=== PATIENT | male | born 1940 | race Caucasian/White ===

== ENCOUNTER 2023-10-19 07:48 | Inpatient (IN) ==
--- NOTE | 2023-09-20 16:12 | PAT Medication Instructions ---
Medication Instructions Date of Service September 20, 2023 Home Medications acetaminophen 650 mg tablet,extended release 1,950 mg PO DAILY PRN furosemide 40 mg tablet 40 mg PO QAM metoprolol succinate 50 mg tablet,extended release 24 hr 25 mg PO QAM pantoprazole 40 mg tablet,delayed release 40 mg PO QAM rivaroxaban 20 mg tablet (Xarelto) 20 mg PO QAM Continue as directed acetaminophen 650 mg tablet,extended release 1,950 mg PO DAILY PRN(if needed) ASK your prescriber and surgeon rivaroxaban 20 mg tablet (Xarelto) 20 mg PO QAM DO NOT take the morning of surgery furosemide 40 mg tablet 40 mg PO QAM Take morning of surgery With a small sip of water, OTHERWISE NOTHING TO EAT OR DRINK AFTER MIDNIGHT: metoprolol succinate 50 mg tablet,extended release 24 hr 25 mg PO QAM pantoprazole 40 mg tablet,delayed release 40 mg PO QAM Other Notes If you have any questions please call us at [phone] or [phone] or [phone] or [phone]
--- NOTE | 2023-09-26 13:00 | Anesthesiology Consultation ---
Date of Service September 26, 2023 Assessment & Plan (1) Encounter for pre-operative examination: - Infectious disease screening: Per assessment on 09/26/23: No known infectious disease contacts or current infectious disease symptoms. No noted recent Covid positive test result. - Xarelto instructions: Per surgeon/prescriber - Pacemaker: Case reviewed with Dr. Wren. He feels that patient does not need pacer rep perioperatively for given surgery. - Received 09/25/23 nuclear stress test. Patient acceptable risk for surgery pending surgeon-ordered cardiology clearance ([facility]). Chart Review Chart Review: Patient seen in Pre Admission Testing Teaching & Discussion Pre-Anesthesia Teaching/Discussion Notes: Instructed NPO after midnight before surgery,except medications with 15 cc of water. Medication instructions provided according to the PAT guidelines. History Surgery Operation Date: 10/19/23 10:05 Proposed Procedures p L3-S1 Decompression and Fusion - Deandre Edmond DO Height/Weight Height: 6 ft 1 in Weight: 117.5 kg Allergies Allergy/AdvReac Type Severity Reaction Status Date / Time niacin Allergy Intermediate flushed Verified 09/18/23 16:26 skin, light headed Medications Home Medications Medication Instructions Recorded Confirmed Last Taken acetaminophen 650 mg 1,950 mg PO DAILY PRN Pain 09/18/23 09/18/23 Unknown tablet,extended release furosemide 40 mg tablet 40 mg PO QAM 09/18/23 09/18/23 Unknown metoprolol succinate 50 mg 25 mg PO QAM 09/18/23 09/18/23 Unknown tablet,extended release 24 hr pantoprazole 40 mg tablet,delayed 40 mg PO QAM 09/18/23 09/18/23 Unknown release rivaroxaban 20 mg tablet (Xarelto) 20 mg PO QAM 09/18/23 09/18/23 Unknown Past Medical History Medical History (Updated 09/26/23 @ 16:25 by Richelle Valdez) Atrial fibrillation Taking Xarelto/Metoprolol Follows with Dr. Mchugh Barrettjaylene esophagus CAD (coronary artery disease) Cardiac cath 2020: Mild nonocclusive coronary disease > medical management recommended Chronic back pain Obesity Osteoarthritis Pacemaker Schwartz, implanted [address] Mchugh Exercise / Class Metabolic Activity III < 4 Walking/Shop/Light housework (one FS: No CP, + SOB) Past Family History Family History Other No family history of adverse response to anesthesia Past Surgical History Surgical History (Updated 09/26/23 @ 16:25 by Richelle Valdez) History of cardiac cath 2020- no stents History of cholecystectomy History of colonoscopy History of esophagogastroduodenoscopy (EGD) History of tooth extraction all teeth removed Status post placement of cardiac pacemaker 2020 ([facility] [place]) Past Anesthesia History No Hx of Anesthesia Complications and No Family Hx of Anesthesia Complications History of PONV No Hx of PONV and No Hx of Motion Sickness Social History Smoking Status: Former smoker Do You Dip or Chew Tobacco: No Smoking End Date: Quit 40 years ago Hx Alcohol Use: No Hx Substance Use: No substance use type: does not use Review of Systems Patient denies chest pain, shortness of breath, dyspnea on exertion, reflux, cough, wheezing, palpitations. Physical Exam Vital Signs BP 115/74 P 60 TEMP 98.3 SP02 96%RA RESP 18 Physical Full cervical extension range of motion. Full TMJ range of motion. TMD > 3.5 finger breaths Mallampati Score 1 Dentition: full upper/lower dentures Lungs: clear throughout to auscultation Cardiac: regular rate, irregular rhythm, no murmurs noted Spine: normal Carotid arteries: negative bruit Extremities: no LE edema Lab Results Anesthesia Preop Results Results Anesthesia Widget: PT 15.4 Seconds (9.0-12.0) H 09/26/23 PTT 45 Seconds (21-31) H 09/26/23 INR 1.4 (0.9-1.1) H 09/26/23 Urine Color Yellow 09/26/23 Urine Appearance Clear (Clear) 09/26/23 Urine pH 5.0 (4.5-7.5) 09/26/23 Urine Specific [place] 1.029 (1.000-1.030) 09/26/23 Urine Protein Negative (Negative) 09/26/23 Urine Glucose (UA) Negative (Negative) 09/26/23 Urine Ketones Trace (Negative) H 09/26/23 Urine Blood Negative (Negative) 09/26/23 Urine Nitrite Negative (Negative) 09/26/23 Urine Bilirubin Negative (Negative) 09/26/23 Urine Urobilinogen Negative (Negative) 09/26/23 Urine Leukocyte Esterase Negative (Negative) 09/26/23 Blood Type O Positive 09/26/23 Antibody Screen NEGATIVE 09/26/23 Testing Laboratory Results *Elevated coags- patient taking Xarelto* 09/07/23 WBC 8.9 H/H 14.3/45.0 PLATELETS 245 SODIUM 139 POTASSIUM 3.7 CHLORIDE 108 CO2 29.0 BUN 13.0 CREATININE 1.30 GLUCOSE 137 HGBA1C 6.1% Electrocardiogram Date: 11/25/22 Atrial fibrillation with normal mean ventricular response at 70 bpm. PVCs or aberrantly conducted complexes. Slight IVCD. Intermittent V pacing. Chest X-Ray Date: 09/26/23 FINDINGS: No pneumothorax. No pleural effusions. There is mild elevation of the right hemidiaphragm. The heart is top normal in size. There is left-sided single lead pacemaker. No focal lung consolidations to suggest pneumonia. No evidence for pulmonary edema. Calcifications within the aortic knob. Degenerative changes within the thoracic spine. IMPRESSION: No acute process. Stress Test Type: nuclear LV size is normal. No transient ischemic dilation of the left ventricle during stress. No myocardial perfusion defects noted. LVEF 71%. Cardiac Catheterization Date: 10/11/20 Mild nonocclusive coronary disease. Normal LV systolic function. Recommendations: Guideline directed medical therapy for secondary prevention of coronary artery disease. Other Testing Pacer check Date: 09/13/23 Normal implantable pacemaker remote followup. No significant devicerelated abnormalities noted. RVP 50.0%. Battery longevity 6 years 10 months. Bradycardia mode VVIR.
[2023-10-19] MEDS: ACETAMINOPHEN 500 MG TAB PO SCH (08:30)
[2023-10-19] MEDS: GABAPENTIN 300 MG CAP PO SCH (08:30)
[2023-10-19] MEDS: CeleBREX 200 MG CAP PO SCH (08:30)
[2023-10-19] MEDS: LR 60ML/HR IV SCH (08:31)
[2023-10-19] MEDS: LR 15ML/HR IV SCH (08:46)
[2023-10-19] MEDS ORDERED: ONDANSETRON INJ 2 MG/ML 2 ML VIAL IV PRN ×2 (09:10→14:42)
[2023-10-19] MEDS ORDERED: ATROPINE SULFATE 0.1 MG/ML 10ML SYR IV PRN (09:10)
[2023-10-19] MEDS ORDERED: ePHEDrine sulfate 50 MG/ML AMP IV PRN (09:10)
[2023-10-19] MEDS ORDERED: fentaNYL citrate PF 100 MCG/2 ML VIAL ONE ×2 (09:17→10:44)
--- NOTE | 2023-10-19 09:29 | History & Physical Bridge Note ---
Date of Service October 19, 2023 History & Physical Bridge Note I have examined the patient, reviewed the History & Physical and in the interval since the performance of the History & Physical I have noted the following changes of clinical significance: no changes noted
--- NOTE | 2023-10-19 09:31 | History & Physical Report ---
Date of Service October 19, 2023 Assessment & Plan (1) Neurogenic claudication due to lumbar spinal stenosis: Plan: L3-S1 decompression and fusion History of Present Illness Chief Complaint: Back and leg pain Primary Care Provider: Kristofer Ramirez This is an 83-year-old male presents with chronic persistent back and leg pain after failing extensive course of nonoperative care is here for surgical invention. Allergies Allergy/AdvReac Type Severity Reaction Status Date / Time niacin Allergy Intermediate flushed Verified 10/19/23 08:26 skin, light headed Home Medications Medication Instructions Recorded Confirmed Type acetaminophen 650 mg 1,950 mg PO DAILY PRN Pain 09/18/23 10/19/23 History tablet,extended release furosemide 40 mg tablet 40 mg PO QAM 09/18/23 10/19/23 History metoprolol succinate 50 mg 25 mg PO QAM 09/18/23 10/19/23 History tablet,extended release 24 hr pantoprazole 40 mg tablet,delayed 40 mg PO QAM 09/18/23 10/19/23 History release rivaroxaban 20 mg tablet (Xarelto) 20 mg PO QAM 09/18/23 10/19/23 History Past Med/Surg History Medical History (Updated 10/19/23 @ 09:30 by Deandre Edmond DO) CAD (coronary artery disease) Cardiac cath 2020: Mild nonocclusive coronary disease > medical management recommended Obesity Osteoarthritis Chronic back pain Barretts esophagus Atrial fibrillation Taking Xarelto/Metoprolol Follows with Dr. Mchugh Pacemaker Schwartz, implanted [address] Mchugh Surgical History History of colonoscopy History of esophagogastroduodenoscopy (EGD) History of tooth extraction all teeth removed History of cholecystectomy History of cardiac cath 2020- no stents Status post placement of cardiac pacemaker 2020 ([facility]) Family History Other No family history of adverse response to anesthesia Social History (System 12/02/18 @ 12:27 by Bhumi Calderón) Smoking Status: Former smoker Tobacco Type: Cigarettes Smoking End Date: Quit 40 years ago; Second Hand Exposure: No; Do You Dip or Chew Tobacco: No; Tobacco Cessation Education Requested by Patient: No Hx Alcohol Use: No Hx Substance Use: No Preferred Language: Armenian Communication Ability: Effective Manager Maritime Required: No Beliefs That Will Affect Care: None Current Living Situation: Alone Other Information That Helps Us Care for You: No Feels Safe at Home: Yes Safety Concerns: Feels Safe At This Time Assistive Devices: Denture - Upper, Denture - Lower, Glasses and Walker Physical Exam Physical Exam: Patient is alert and oriented Heart regular in rhythm Lungs clear Results & Data Results & Data Vital Signs (Past 12 Hours) Vital Signs Pulse Resp BP Pulse Ox O2 Del Method 10/19/23 08:21 86 20 163/94 H 94 Room Air
[2023-10-19] MEDS ORDERED: PROPOFOL IV EMULSION 10 MG/ML 20 ML VIAL IV ONE (09:48)
[2023-10-19] MEDS ORDERED: ONDANSETRON INJ 2 MG/ML 2 ML VIAL ONE (09:48)
[2023-10-19] MEDS ORDERED: ROCURONIUM BROMIDE 10 MG/ML 5 ML VIAL IV ONE ×3 (09:48→10:45)
[2023-10-19] MEDS ORDERED: LIDOCAINE 2% 2 ML VIAL/AMP(20MG/ML) INFIL ONE (09:48)
[2023-10-19] MEDS ORDERED: DEXAMETHASONE SOD INJ 4 MG/ML VIAL ONE (09:48)
[2023-10-19] MEDS: ceFAZolin 2000MG 2,000 MG/15 ML SYR IV SCH ×2 (10:11→18:24)
[2023-10-19] MEDS: BUPIVACAINE/EPINEPHRINE 0.5% MPF 1:200,000 30 ML VIAL ONE (10:58)
[2023-10-19] MEDS ORDERED: SUGAMMADEX SODIUM 200 MG/2 ML VIAL IV ONE ×2 (12:12)
--- NOTE | 2023-10-19 12:38 | Operative Report ---
Post Operative Report Pre & Post Diagnosis Operation Date: 10/19/23 09:35 Pre-Op Diagnosis: Neurogenic Claudication due to Lumbar Spinal Stenosis Spondylolisthesis L4-L5 Post-Op Diagnosis: Same I identified the patient and participated in the time-out.: Yes Procedure Operation Date: 10/19/23 09:35 Actual Procedures #1 lumbar decompression bilateral medial facetectomies and foraminotomies L2-L3, L3-L4 and L4-5. #2 posterior spinal fusion L3-L5. #3 placed posterior instrumentation L3 L5. #4 interbody fusion L3-L4 L4-5 and #5 placement Spira 13 x 26 mm at L3-4 and 15 x 26 mm x 2 at L4-L5. #6 placement locally harvested morselized autograft in the posterior gutters. #7 placement infuse collagen sponge combined with Koros in the posterior lateral gutters and Morpheus interbody space. Surgeon Deandre Edmond, DO Group Segment Consultant Scot Zhang Estimated Blood Loss 400 Findings See Below The patient is 6 foot 1 weighing over 117 kg with a BMI in excess of 34. Patient's body was did contribute to significant technical difficulty with positioning exposure and the procedure itself adding least 50% increased operative time. Specimens None Indications This is a 83-year-old male who presents above-mentioned diagnosis after failing course of nonoperative care is here for surgical invention. Description of Procedure Patient was met with identified informed consent obtained. Patient was then taken to the operative suite underwent a patient placed in a prone position on the Cornell table atop the Bruce frame. All bony promises well-padded eyes inspected to ensure no external pressure placed upon them. This point the lumbar spine was prepped and draped in a sterile fashion. Sharp dissection with the assistance of bradycardia from down to and exposing the lamina transverse processes of L3 L4-5 bilaterally. Patient placed in the 5 1 level demonstrated to be stable and chose not to pursue fusion at this level. From caudal cephalad fashion complete laminectomy L4 L3 and partial laminectomy L2 was performed including bilateral medial facetectomies and foraminotomies addressing severe spinal stenosis. Pedicle screws were placed in L3-L4-L5 bilaterally with assistance of fluoroscopy in the process madhuri placed. By way of transforaminal approach on the left discectomy of L4-5 was performed endplates guided to subcortical bleeding bone and a 15 x 26 mm Spira cage filled with Morpheus bone graft tapped in position. Then proceeded to the right side of L4-L5 and again by way the transforaminal approach discectomy performed endplates guided to subcortical bleeding bone and a second 15 x 26 mm Spira cage filled with Morpheus bone graft tapped in position. Then proceeded to L3-L4 and by way of transfer and approach on the left complete discectomy performed endplates guided to subcortically bone and a 13 x 26 mm Spira cage filled with Morpheus bone graft tapped in position. The rods were then compressed locked in final position bilaterally. The transverse processes of L3 L4-5 burred to subcortical bleeding bone. Infuse collagen sponge combined with Koros and local autograft placed in the posterior lateral gutters. 15 round KRISTI inserted. The incision was then closed with 1 Vicryl the fascia 2-0 Vicryl subcutaneously and 4 Monocryl for final skin closure. Steri-Strips dressing placed. Patient waken taken to PACU in stable condition. Please note spinal cord monitoring was utilized at the procedure no changes noted. Lastly Scot Zhang was present at the entire surgery and on the patient positioning complex portion of the surgery and possible closure. I attest to the content of the Intraoperative Record and any orders documented therein. Any exceptions are noted below.
[2023-10-19] MEDS: ceFAZolin 330 MG/ML 1 GM VIAL ONE (12:40)
[2023-10-19] MEDS: fentaNYL citrate PF 100 MCG/2 ML VIAL IV PRN (13:30)
--- NOTE | 2023-10-19 13:49 | Anesthesiology Progress Note ---
Date of Service October 19, 2023 Anesthesia Post Procedure Vital Signs Vital Signs: Temp Pulse Pulse Resp BP Pulse Ox O2 Del Method 10/19/23 13:45 97.5 F L 69 12 122/78 97 Nasal Cannula 10/19/23 13:35 70 15 120/65 97 Nasal Cannula 10/19/23 13:25 71 13 127/56 L 93 Room Air 10/19/23 13:15 67 12 118/62 97 Oxymask 10/19/23 13:05 67 18 133/69 99 Oxymask 10/19/23 12:56 99.0 F 68 12 129/62 98 Oxymask 10/19/23 08:21 86 20 163/94 H 94 Room Air O2 Flow Rate 10/19/23 13:45 2 10/19/23 13:35 2 10/19/23 13:25 10/19/23 13:15 4 10/19/23 13:05 8 10/19/23 12:56 8 10/19/23 08:21 Pain Intensity Back: Pain Intensity: 4 Transfer of Care Handoff Completed per policy Notes Mental Status: alert / awake / arousable and participated in evaluation Patient Amnestic to Procedure: Yes Nausea / Vomiting: adequately controlled Pain: adequately controlled Airway Patency, RR, SpO2: stable & adequate BP & HR: stable & adequate Hydration State: stable & adequate Anesthetic Complications: no major complications apparent and Pt Satisfied with anesthetic care
--- NOTE | 2023-10-19 13:51 | Fluoroscopy Report ---
[place] lumbar spine 2-3V CLINICAL HISTORY: L3-S1 DECOMPRESSION AND FUSION COMPARISON STUDY: None. FLUOROSCOPY TIME: 24 seconds FLUOROSCOPY IMAGES: 2 Ka,r: 23.2 mGy FINDINGS: There is 2 level posterior decompression and fusion within the mid to lower lumbar spine. T he exact levels are difficult to identify on this spot image. The hardware appears intact. IMPRESSION: Fluoroscopic assistance as above. ACT 112: Negative or not required by law. Electronically signed by: Gregg Flores M.D. 10/19/2023 1:50 PM
[2023-10-19] MEDS: FLOSEAL HEMOSTATIC MATRIX 10ML TOP ONE (13:54)
[2023-10-19] MEDS ORDERED: DO NOT ADMINISTER PNEUMOCOCCAL VACCINE PRN (14:42)
[2023-10-19] MEDS ORDERED: HYDROmorphone INJ 1 MG/ML SYRINGE IV PRN (14:42)
[2023-10-19] MEDS ORDERED: oxyCODONE HCL IR 5 MG TAB (IMMEDIATE RELEASE) PO PRN (14:42)
[2023-10-19] MEDS ORDERED: hydrOXYzine HCl 25 MG TAB PO PRN (14:42)
[2023-10-19] MEDS ORDERED: LORazepam 0.5 MG TAB PO PRN (14:42)
[2023-10-19] MEDS ORDERED: MAGNESIUM HYDROXIDE SUSP 30 ML UDC PO PRN (14:42)
[2023-10-19] MEDS ORDERED: FAMOTIDINE 20 MG TAB PO PRN (14:42)
[2023-10-19] MEDS ORDERED: LORazepam 0.5 MG in SYRINGE 0.25 ML IV PRN (14:42)
[2023-10-19] MEDS ORDERED: PROMETHAZINE HCL 12.5 MG in SODIUM CHLORIDE 0.9% 50 ML IV PRN (14:42)
[2023-10-19] MEDS ORDERED: ONDANSETRON 4 MG OD TAB PO PRN (14:42)
[2023-10-19] MEDS ORDERED: diphenhydrAMINE Capsule 25 MG CAP PO PRN (14:42)
[2023-10-19] MEDS ORDERED: METOCLOPRAMIDE HCL INJ 5 MG/ML 2 ML VIAL IV PRN (14:42)
[2023-10-19] MEDS ORDERED: DO NOT ADMINISTER FLU VACCINE PRN (14:42)
[2023-10-19] MEDS ORDERED: NALOXONE HCL 0.4 MG/1 ML VIAL/CARP IV PRN (14:42)
[2023-10-19] MEDS ORDERED: ALUMINUM/MAGNESIUM SUSP 30 ML UDC PO PRN (14:42)
[2023-10-19] MEDS: LACTATED RINGER'S 1,000 ML IV SCH (15:06)
[2023-10-19] MEDS: HYDROmorphone INJ 0.5 MG/0.5 ML SYR IV PRN (15:09)
--- NOTE | 2023-10-19 17:13 | Hospitalist Consultation ---
Date of Consultation October 19, 2023 Assessment & Plan (1) Neurogenic claudication due to lumbar spinal stenosis: This is an 83 y/o male with lumbar spinal stenosis, hx of CAD, atrial fibrillation, tachy-dawood syndrome s/p PPM, Ellsworth's esophagus, ALEX, venous insufficiency, edema, and hypercholesterolemia who underwent L3-L5 decompression and fusion today by Dr. Edmond and for whom we have been consulted to assist with post-operative medical management. He currently has no specific complaints other than some post-operative back pain that is similar to usual. POD #0 L3-L5 decompression/fusion - Pain control, activity per primary team - Recommend resuming Xarelto as soon as okay with primary team - Advance diet as tolerate - Encourage incentive spirometry - Labs in the AM - monitor for post-op blood loss anemia (EBL = 400) (2) CAD (coronary artery disease): Chronic, stable Continue beta-ayse Will decrease pt's IVF to 100 ml/hr since tolerating po intake - history of edema, on furosemide, so monitor fluid status closely (3) Atrial fibrillation: Chronic, stable Continue beta-ayse, resume Xarelto per #1 (4) Barretts esophagus: Chronic, stable Continue outpatient PPI Plan Pt seen and reviewed with collaborating physician, Dr. Butts. Plan of care discussed and as outlined above. Thank you for this consultation. We will continue to follow this patient with you. [facility] via Lorena Gaxiola. Please don't hesitate to reach out with questions. Emma García PA-C Supervising Physician Co-Signing Physician Notes I have seen and examined the patient and have discussed the case with the provider above. I have reviewed the advanced practitioner's documentation, and I agree with, and take responsibility for that plan of care. Meds reviewed. Restart rivaroxaban as soon as ok by spine surgeon. Has been held for 72 hours preop. Doing well post operatively from a clinical and symptom perspective. Tolerating PO. Denies uncontrolled pain. We will continue to follow his post operative course. DO Benjamín History of Present Illness Reason for Consultation: Post-operative medical management Requesting Physician: Dr. Deandre Edmond Attending Physician: Deandre Edmond DO History of Present Illness This is an 83 y/o male with lumbar spinal stenosis, hx of CAD, atrial fibrillation, tachy-dawood syndrome s/p PPM, Ellsworth's esophagus, ALEX, venous insufficiency, edema, and hypercholesterolemia who underwent L3-L5 decompression and fusion today by Dr. Edmond and for whom we have been consulted to assist with post-operative medical management. He is seen post-operatively and reports feeling well overall. He has some lower back pain that is similar to before surgery but is currently controlled. He denies any numbness or tingling at present. He has a history of mild nonobstructive CAD. He reports chronic [place], mainly with going up an incline. He denies chest pain/pressure, palpitations, N/V, dysphagia, ROTHMAN, dizziness at present. Tolerating liquid diet. He is on chronic Xarelto due to atrial fibrillation and reports that he held this for three days prior to surgery. He does not recall being told when this can be resumed. Allergies Allergy/AdvReac Type Severity Reaction Status Date / Time niacin Allergy Intermediate flushed Verified 10/19/23 08:26 skin, light headed amoxicillin Allergy Unknown Verified 10/19/23 14:46 Home Medications Medication Instructions Recorded Confirmed Type acetaminophen 650 mg 1,950 mg PO DAILY PRN Pain 09/18/23 10/19/23 History tablet,extended release furosemide 40 mg tablet 40 mg PO QAM 09/18/23 10/19/23 History metoprolol succinate 50 mg 25 mg PO QAM 09/18/23 10/19/23 History tablet,extended release 24 hr pantoprazole 40 mg tablet,delayed 40 mg PO QAM 09/18/23 10/19/23 History release rivaroxaban 20 mg tablet (Xarelto) 20 mg PO QAM 09/18/23 10/19/23 History Patient History Medical History CAD (coronary artery disease) Cardiac cath 2020: Mild nonocclusive coronary disease > medical management recommended Obesity Osteoarthritis Chronic back pain Barretts esophagus Atrial fibrillation Taking Xarelto/Metoprolol Follows with Dr. Mchugh Pacemaker Schwartz, implanted [address] Mchugh Surgical History History of colonoscopy History of esophagogastroduodenoscopy (EGD) History of tooth extraction all teeth removed History of cholecystectomy History of cardiac cath 2020- no stents Status post placement of cardiac pacemaker 2020 ([facility]) Family History Other No family history of adverse response to anesthesia Social History Smoking Status: Former smoker Tobacco Type: Cigarettes Smoking End Date: Quit 40 years ago; Second Hand Exposure: No; Do You Dip or Chew Tobacco: No; Tobacco Cessation Education Requested by Patient: No Hx Alcohol Use: No Hx Substance Use: No Preferred Language: Ivorian Communication Ability: Effective 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 Beliefs That Will Affect Care: None Current Living Situation: Alone Other Information That Helps Us Care for You: No Feels Safe at Home: Yes Safety Concerns: Feels Safe At This Time Assistive Devices: Denture - Upper, Denture - Lower, Glasses and Walker Review of Systems Review of Systems: All systems reviewed & are unremarkable except as noted in HPI & below Constitutional: no fever and no chills Eyes: no diplopia Ear, Nose, Mouth, Throat: no sore throat and no dysphagia Respiratory: no cough, no dyspnea and no wheezing Cardiovascular: + dyspnea on exertion (chronic, stable); no chest pain, no palpitations and no syncope Gastrointestinal: no abdominal pain, no nausea and no vomiting Genitourinary: no hematuria Musculoskeletal: + back pain Integumentary: no yellowing of the skin Neurologic: no dizziness, no headache(s) and no confusion Physical Exam Physical Exam: General: awake, alert, NAD, sitting in bed and appears comfortable HEENT: no scleral icterus, moist oral mucosa Neck: trachea midline Heart: irregularly irregular Lungs: CTA bilaterally without W/R/R Abdomen: soft, NT, +BS Extremities: distal pulses intact and equal, no pedal edema Neurologic: moving all extremities; sensation to light touch intact bilateral feet; no focal deficits; oriented x 3; no dysarthria or confusion Results & Data Results & Data Vital Signs (Past 12 Hours) Vital Signs Temp Pulse Pulse Resp BP Pulse Ox O2 Del Method 10/19/23 16:50 74 18 130/60 96 Room Air 10/19/23 15:41 74 18 133/96 96 Nasal Cannula 10/19/23 14:42 36.3 C L 63 18 127/68 95 Nasal Cannula 10/19/23 14:30 70 12 136/74 97 Nasal Cannula 10/19/23 14:15 70 14 127/68 97 Nasal Cannula 10/19/23 14:00 62 12 137/71 97 Nasal Cannula 10/19/23 13:45 36.4 C L 69 12 122/78 97 Nasal Cannula 10/19/23 13:35 70 15 120/65 97 Nasal Cannula 10/19/23 13:25 71 13 127/56 L 93 Room Air 10/19/23 13:15 67 12 118/62 97 Oxymask 10/19/23 13:05 67 18 133/69 99 Oxymask 10/19/23 12:56 37.2 C 68 12 129/62 98 Oxymask 10/19/23 08:21 86 20 163/94 H 94 Room Air O2 Flow Rate 10/19/23 16:50 10/19/23 15:41 1 10/19/23 14:42 1 10/19/23 14:30 2 10/19/23 14:15 2 10/19/23 14:00 2 10/19/23 13:45 2 10/19/23 13:35 2 10/19/23 13:25 10/19/23 13:15 4 10/19/23 13:05 8 10/19/23 12:56 8 10/19/23 08:21 Laboratory Results 10/19/23 08:09 Blood Type O Positive Antibody Screen NEGATIVE Crossmatch See Detail Medications Administered Acetaminophen (Acetaminophen 500 Mg Tab) 1,000 mg PO PREOP CARO Stop: 10/19/23 18:00 Last Admin: 10/19/23 08:30 Dose: 1,000 mg Documented By: TDM Celecoxib (Celebrex 200 Mg Cap) 200 mg PO PREOP CARO Stop: 10/19/23 18:00 Last Admin: 10/19/23 08:30 Dose: 200 mg Documented By: TDM Fentanyl Citrate (Fentanyl Citrate Pf 100 Mcg/2 Ml Vial) 50 mcg IV Q5M PRN PRN Reason: PACU Use Only-Pain Stop: 10/19/23 17:10 Last Admin: 10/19/23 13:30 Dose: 50 mcg Documented By: DP Gabapentin (Gabapentin 300 Mg Cap) 300 mg PO PREOP CARO Stop: 10/19/23 18:00 Last Admin: 10/19/23 08:30 Dose: 300 mg Documented By: GILMER Hydromorphone HCl (Hydromorphone Inj 0.5 Mg/0.5 Ml Syr) 0.5 mg IV Q3H PRN PRN Reason: MODERATE Pain (Scale 4,5,6) & Pre PT Stop: 11/02/23 14:41 Last Admin: 10/19/23 15:09 Dose: 0.5 mg Documented By: DANETTE Lactated Ringer's (Lr) 1,000 mls @ 60 mls/hr IV .I90E10H ON LICENSE OF [facility] Stop: 10/19/23 22:39 Last Admin: 10/19/23 08:31 Dose: Not Given Documented By: GILMER Cefazolin Sodium (Ancef 2000mg) 2,000 mg in 15 mls @ 3.75 mls/min IV PREOP CARO; Protocol Stop: 10/19/23 18:00 Last Admin: 10/19/23 10:11 Dose: 3.75 mls/min Documented By: [id number] Lactated Ringer's (Lr) 1,000 mls @ 15 mls/hr IV .Q24H ON LICENSE OF [facility] Stop: 10/20/23 05:59 Last Infusion: 10/19/23 10:09 Dose: Infused Documented By: Admin: 10/19/23 08:46 Dose: 15 mls/hr Documented By: GILMER Lactated Ringer's (Lr) 1,000 mls @ 150 mls/hr IV .Q6H40M ON LICENSE OF [facility] Stop: 11/18/23 14:41 Last Admin: 10/19/23 15:06 Dose: 150 mls/hr Documented By: DANETTE Discontinued Medications Bupivacaine HCl/Epinephrine Bitart (Bupivacaine/Epinephrine 0.5% Mpf 1:200,000 30 Ml Vial) Confirm Administered Dose 30 ml .ROUTE .STK-MED ONE Stop: 10/19/23 09:54 Last Admin: 10/19/23 10:58 Dose: 25 ml Documented By: GMKelby Cefazolin Sodium (Cefazolin 330 Mg/Ml 1 Gm Vial) Confirm Administered Dose 990 mg .ROUTE .STK-MED ONE Stop: 10/19/23 09:54 Last Admin: 10/19/23 12:40 Dose: 990 mg Documented By: JORGITO Miscellaneous ( Floseal Hemostatic Matrix 10ml) 10 ml TOP ONCE ONE Stop: 10/19/23 12:09 Last Admin: 10/19/23 14:39 Dose: 20 ml Documented By: GMB (2) CAD (coronary artery disease) Associated angina: unspecified whether angina present Coronary Disease-Associ ated Artery/Lesion type: [place] artery [place] vs. transplanted heart: red [place] heart Qualified Code(s): I25.10 - Atherosclerotic heart disease of [place] coronary artery without angina pectoris (3) Atrial fibrillation Atrial fibrillation type: longstanding persistent Qualified Code(s): I48.11 - Longstanding persistent atrial fibrillation (4) Barretts esophagus Ellsworth's esophagus type: without dysplasia Qualified Code(s): K22.70 - Ellsworth's esophagus without dysplasia
[2023-10-19] MEDS: DOCUSATE SODIUM/SENNA 50/8.6MG TAB PO SCH (20:28)
[2023-10-19] MEDS: ACETAMINOPHEN 1,000 MG/100 ML VIAL IV PRN (20:34)
[2023-10-20] MEDS: POLYETHYLENE (MIRALAX) 17 GM PACK PO SCH (06:21)
[2023-10-20 06:29] LABS: Basophils # (auto) 0.01 K/uL (0.00-0.20); Basophils % (auto) 0.1 %; Hematocrit (blood only) 33.7 % (42.0-52.0); Hemoglobin 11.8 g/dl (14.0-18.0); Immature Granulocytes # (auto) 0.07 K/uL (0.01-0.20); Immature Granulocytes % (auto) 0.5 %; Lymphocytes # (auto) 1.55 K/uL (1.20-3.40); Lymphocytes % (auto) 11.7 %; Mean Corpuscular Hemoglobin 32.2 pg (25.0-34.0); Mean Corpuscular Volume 92.1 fL (80.0-100.0); Mean Platelet Volume 10.8 fL (9.4-12.4); Monocytes # (auto) 1.19 K/uL (0.11-0.59); Neutrophils % (auto) 78.7 %; Platelet Count 199 K/uL (130-400); RDW Coefficient of Variation 13.4 % (11.5-14.5); RDW Standard Deviation 45.8 fL (36.4-46.3); Red Blood Count 3.66 M/uL (4.70-6.10); White Blood Count 13.22 K/ul (4.8-10.8)
[2023-10-20 06:52] LABS: Est GFR (African American) 81.4 ml/min; Est GFR (Non-African American) 70.3 ml/min; Potassium 4.1 mmol/L (3.5-5.1)
[2023-10-20 06:53] LABS: Calcium 8.9 mg/dl (8.6-10.3); Creatinine Clr Calc Pharmacy 77.7 ml/min
--- NOTE | 2023-10-20 07:48 | Orthopedic Progress Note ---
Date of Service October 20, 2023 Assessment & Plan (1) Neurogenic claudication due to lumbar spinal stenosis: Plan: Patient is doing well postoperatively #1. Continue with GI DVT prophylaxis and pain control measures. Will have him seen by physical therapy for ambulation and gait training and hopefully discontinue the [place] today. We are likely going to keep him throughout the weekend and discharge him to home on Sunday. Admission and Anticipated Discharge Date Admission Date: October 19, 2023 Subjective Patient was seen bedside in room 387. He states he is doing well at this point. If he is in 1 position for too long he starts to get some discomfort in the back but he would not call it jerad pain. His legs seem to be doing better. His pain is well-controlled. He denies any other numbness, tingling, paresthesias. Physical Exam Physical Exam: On exam he is alert and oriented. His visual ann are grossly intact. His abdomen soft and nontender his calves are supple and nontender. His motor exam reveals no focal atrophy strength and sensation grossly intact. His KRISTI drain is holding suction and his dressing is clean dry and intact. Results & Data Vital Signs (Past 12 Hours) Vital Signs Temp Pulse Resp BP BP Pulse Ox O2 Del Method 10/20/23 07:35 36.7 C 76 16 109/62 94 Room Air 10/20/23 02:59 36.7 C 78 16 111/64 93 Room Air 10/19/23 23:09 36.7 C 66 16 128/64 94 Room Air 10/19/23 20:16 36.8 C 70 16 112/70 95 Room Air
[2023-10-20] MEDS: METOPROLOL SUCC 25MG EXT REL TAB PO SCH (08:02)
[2023-10-20] MEDS: dexAMETHasone 6 MG in SYRINGE 0 ML IV SCH (08:02)
[2023-10-20] MEDS: PANTOprazole 40 MG TAB PO SCH (08:03)
[2023-10-20] MEDS: FUROSEMIDE 40 MG TAB PO SCH (08:03)
--- NOTE | 2023-10-20 14:26 | Hospitalist Progress Note ---
Date of Service October 20, 2023 Assessment & Plan (1) Neurogenic claudication due to lumbar spinal stenosis: Plan: This is an 83 y/o male with lumbar spinal stenosis, hx of CAD, atrial fibrillation, tachy-dawood syndrome s/p PPM, Ellsworth's esophagus, ALEX, venous i nsufficiency, edema, and hypercholesterolemia who underwent L3-L5 decompression and fusion today by Dr. Edmond and for whom we have been consulted to assist with post-operative medical management. He currently has no specific complaints other than some post-operative back pain that is similar to usual. POD #1 L3-L5 decompression/fusion - Pain control, activity per primary team - Recommend resuming Xarelto as soon as okay with primary team - Advance diet as tolerate - Encourage incentive spirometry - Labs in the AM - monitor for post-op blood loss anemia (EBL = 400) (2) CAD (coronary artery disease): Plan: Chronic, stable Continue beta-ayse (3) Atrial fibrillation: Plan: Chronic, stable Continue beta-ayse, resume Xarelto per #1 (4) Barretts esophagus: Plan: Chronic, stable Continue outpatient PPI Admission and Anticipated Discharge Date Admission Date: October 19, 2023 Subjective Patient was seen and examined at bedside. He was sitting up in chair, on room air, NAD, resting comfortably. He reports operative site pain under control. Reports eating okay and moving gas, has not moved bowels yet. Physical Exam Physical Exam: General: awake, alert, NAD, sitting in bed and appears comfortable HEENT: no scleral icterus, moist oral mucosa Neck: trachea midline Heart: irregularly irregular Lungs: CTA bilaterally without W/R/R Abdomen: soft, NT, +BS Extremities: distal pulses intact and equal, no pedal edema Neurologic: moving all extremities; sensation to light touch intact bilateral feet; no focal deficits; oriented x 3; no dysarthria or confusion Low back with clean dressing without soakage. Results & Data Results & Data Vital Signs (Past 12 Hours) Vital Signs Temp Pulse Resp BP BP Pulse Ox O2 Del Method 10/20/23 11:27 37 C 75 18 119/66 95 Room Air 10/20/23 07:35 36.7 C 76 16 109/62 94 Room Air 10/20/23 02:59 36.7 C 78 16 111/64 93 Room Air (2) CAD (coronary artery disease) Coronary Disease-Associated Artery/Lesion type: [place] artery [place] vs. transplanted heart: [place] heart Associated angina: unspecified whether angina present Qualified Code(s): I25.10 - Atherosclerotic heart disease of [place] coronary artery without angina pectoris (3) Atrial fibrillation Atrial fibrillation type: longstanding persistent Qualified Code(s): I48.11 - Longstanding persistent atrial fibrillation (4) Barretts esophagus Ellsworth's esophagus type: without dysplasia Qualified Code(s): K22.70 - Ellsworth's esophagus without dysplasia
[2023-10-21 06:23] LABS: Hematocrit (blood only) 34.5 % (42.0-52.0); Hemoglobin 11.8 g/dl (14.0-18.0); Mean Corpuscular Hemoglobin 31.6 pg (25.0-34.0); Mean Corpuscular Hgb Conc 34.2 g/dL (32.0-36.0); Mean Corpuscular Volume 92.2 fL (80.0-100.0); Mean Platelet Volume 10.8 fL (9.4-12.4); Platelet Count 183 K/uL (130-400); RDW Coefficient of Variation 13.9 % (11.5-14.5); RDW Standard Deviation 47.2 fL (36.4-46.3); Red Blood Count 3.74 M/uL (4.70-6.10); White Blood Count 12.73 K/ul (4.8-10.8)
--- NOTE | 2023-10-21 07:48 | Orthopedic Progress Note ---
Date of Service October 21, 2023 Assessment & Plan (1) Neurogenic claudication due to lumbar spinal stenosis: Plan: Patient is doing well postop day #2 status post L3-5 decompression fusion. Organ to continue with GI DVT prophylaxis as well as pain control measures. Will increase his bowel regimen. He will continue to walk with physical therapy. Hopefully he will be safe for home discharge tomorrow. Admission and Anticipated Discharge Date Admission Date: October 19, 2023 Subjective Patient is seen bedside in room 387. He is doing well this morning. Has not yet had a bowel movement however. He has been up and walking with therapy. Their recommendations were home discharge with home care. The pain in his legs is significantly improved. He denies any other numbness, tingling, or paresthesias. The pain is well-controlled. Physical Exam Physical Exam: On exam he is alert and oriented. His abdomen soft nontender his calves are supple and nontender. His KRISTI drain has been removed and dressing is clean dry and intact. Strength and sensation are grossly intact. His gait was not observed. Cardiovascular exam reveals no gross abnormalities. Results & Data Vital Signs (Past 12 Hours) Vital Signs Temp Pulse Resp BP BP Pulse Ox O2 Del Method 10/21/23 07:46 36.6 C 62 16 125/75 96 Room Air 10/20/23 20:09 37 C 77 16 114/60 94 Room Air
--- NOTE | 2023-10-21 13:21 | Hospitalist Progress Note ---
Date of Service October 21, 2023 Assessment & Plan (1) Neurogenic claudication due to lumbar spinal stenosis: Plan: This is an 83 y/o male with lumbar spinal stenosis, hx of CAD, atrial fibrillation, tachy-dawood syndrome s/p PPM, Ellsworth's esophagus, ALEX, venous i nsufficiency, edema, and hypercholesterolemia who underwent L3-L5 decompression and fusion today by Dr. Edmond and for whom we have been consulted to assist with post-operative medical management. He currently has no specific complaints other than some post-operative back pain that is similar to usual. POD #2 L3-L5 decompression/fusion - Pain control, activity per primary team - Recommend resuming Xarelto as soon as okay with primary team - Encourage incentive spirometry (2) CAD (coronary artery disease): Plan: Chronic, stable Continue beta-ayse (3) Atrial fibrillation: Plan: Chronic, stable Continue beta-ayse, resume Xarelto per #1 (4) Barretts esophagus: Plan: Chronic, stable Continue outpatient PPI Admission and Anticipated Discharge Date Admission Date: October 19, 2023 Subjective Patient was seen and examined at bedside. He was sitting up in chair, on room air, NAD, resting comfortably. He reports operative site pain under control. Reports eating okay and moving gas, has not moved bowels yet. Reports improvement in radicular symptoms. Physical Exam Physical Exam: General: awake, alert, NAD, sitting in bed and appears comfortable HEENT: no scleral icterus, moist oral mucosa Neck: trachea midline Heart: irregularly irregular Lungs: CTA bilaterally without W/R/R Abdomen: soft, NT, +BS Extremities: distal pulses intact and equal, no pedal edema Neurologic: moving all extremities; sensation to light touch intact bilateral feet; no focal deficits; oriented x 3; no dysarthria or confusion Low back with clean dressing without soakage. Results & Data Results & Data Vital Signs (Past 12 Hours) Vital Signs Temp Pulse Resp BP Pulse Ox O2 Del Method 10/21/23 07:46 36.6 C 62 16 125/75 96 Room Air (2) CAD (coronary artery disease) Coronary Disease-Associated Artery/Lesion type: [place] artery [place] vs. transplanted heart: [place] heart Associated angina: unspecified whether angina present Qualified Code(s): I25.10 - Atherosclerotic heart disease of [place] coronary artery without angina pectoris (3) Atrial fibrillation Atrial fibrillation type: longstanding persistent Qualified Code(s): I48.11 - Longstanding persistent atrial fibrillation (4) Barretts esophagus Ellsworth's esophagus type: without dysplasia Qualified Code(s): K22.70 - Ellsworth's esophagus without dysplasia
[2023-10-21] MEDS: bisacodyL 10 MG SUPP PR PRN (13:59)
[2023-10-21] MEDS: traMADol HCL 50 MG TABLET PO PRN (15:41)
[2023-10-21] MEDS: SOD PHOSPHATE/SOD BIPHOSPHATE ENEMA 132 ML BTL PR PRN (18:42)
[2023-10-21] MEDS: ACETAMINOPHEN 500 MG TAB PO PRN (20:21)
--- NOTE | 2023-10-22 10:23 | Discharge Summary ---
Date of Service October 22, 2023 Admission HPI Per Admitting Provider This is an 83-year-old male presents with chronic persistent back and leg pain after failing extensive course of nonoperative care is here for surgical invention. Principal Diagnosis Lumbar spinal stenosis with neurogenic claudication Discharge Data Allergies Allergy/AdvReac Type Severity Reaction Status Date / Time niacin Allergy Intermediate flushed Verified 10/19/23 08:26 skin, light headed amoxicillin Allergy Unknown Verified 10/19/23 14:46 Consultations 10/19/23 14:42 Consult Hospitalist Routine Procedures Performed Operation Date: 10/19/23 09:35 Actual Procedures p L3-L5 Decompression and Fusion, Spinal Cord Monitoring(Not Applicable) - Deandre Edmond DO Ordered Studies 10/19/23 09:35 [place] lumbar spine 2-3V Routine Hospital Course (1) Neurogenic claudication due to lumbar spinal stenosis: Plan Patient went multilevel lumbar decompression fusion tolerated as well as negative orthopedic for postoperative. Postoperatively progressed daily. KRISTI drain decreased appropriately. Excellent strength testing. Pain well- controlled. Subsidy discharged home. Discharge orders instructions from the chart for further review. Total Time Total Time Spent Total Time Spent (In Minutes): 20 minutes Discharge Plan Discharge Items Patient Disposition: Home - Self-Care Reason For Visit: Spinal Stenosis of Lumbar Region with Radiculopath Discharge Diagnosis: Lumbar spinal stenosis with neurogenic claudication Activity: As commented below Non-emergency contact: Primary Care Provider Call non-emergency contact if: you have any medication questions Follow-up/Referrals: Kristofer Ramirez [Primary Care Provider] - Diet: Regular Addtl Attending Provider Instructions: ACTIVITY RECOMMENDATIONS: SELF CARE INSTRUCTIONS AFTER THORACIC/LUMBAR FUSIONS 1. You may walk to your tolerance. It is good exercise for your legs and back. Expect some back and intermittent leg aches and pains. 2. You may perform "counter-top" level activities (make a sandwich, bebeto with a project, etc.). 3. No bending or lifting of more than 10 pounds or back twisting of any nature (roll like a log when turning in bed). 4. You may ride in a car for 20-30 minutes at a time. No driving until after your first visit with your doctor. 5. Frequent changes of position and restricting sitting to 30 minutes at a time will help limit the amount of back spasms and stiffness you may experience. 6. You may discontinue the use of ambulatory aids (cane, crutches, etc.) once your strength and confidence allow. 7. You may labor standards director the shower and let water strike your incision when you arrive home at least once daily. Do not take a tub bath, sit in a hot tub or go into a swimming pool until after your first recheck in the office. SPECIAL CARE INSTRUCTIONS: VERY IMPORTANT TO READ AND REVIEW A. Your surgical incision has been closed with a cosmetic suture under the skin that will dissolve in about 6 weeks. In 14 days, you can use a pair of clean scissors and cut the suture that is left outside of the skin at the ends of your incision. 1. The small skin tapes can be removed 7 days after surgery if they have not fallen off by that point. 2. You may keep the wound open to air as much as possible to promote healing after post-op day number 5 unless told otherwise by your doctor. 3. If you think the wound looks like it is becoming infected (redness or wo rsening drainage) and/or you are experiencing fever, chill or worsening back pain and muscle spasms, contact the office so that we may evaluate you as soon as possible. B. Complications are uncommon, but please contact us if you have any signs or symptoms of: 1. wound infection (fever higher than 102.5 degrees F, redness, separation of wound, drainage, or increasing pain from the incision) 2. blood clots in legs (pain, swelling, redness and warmth in legs) 3. urinary tract infection (fever higher than 102.5 degrees F, burning upon urination or increased frequency of urination) 4. nerve problems (inability to walk on your toes or heels, numbness, loss of bowel or bladder control) 5. any other symptoms that concern you C. Please call the office at if you have any concerns or questions about your operation or recovery. D. No smoking! Smoking drastically decreases the chance of a solid fusion. E. Do not take any anti-inflammatory medications (Indocin, Advil, Motrin, Aspirin, Naprosyn, etc.) as these may inhibit the chance of a solid fusion. Tylenol is okay to take for pain. MANAGING PAIN AFTER SPINAL SURGERY 1. Narcotic medication is intended for short-term use and will be provided for surgical pain. Surgical pain usually lasts for a period of 4-6 weeks. Narcotic medication includes Percocet, Vicodin, Darvocet, Tylenol #3 or Lortab. 2. Longer-term pain is more appropriately treated with non-narcotic medication such as Tylenol ES. 3. Muscle spasm is not appropriately treated with narcotics. Muscle relaxers such as Soma, Flexeril or Skelaxin can be used along with Tylenol ES. 4. Remember that we all live with some "aches and pains". This is not unusual or uncommon after an injury or as we get older. a. Back pain is expected and may include muscle spasms for 4 to 6 weeks after surgery. The pain should gradually improve. If the pain worsens for no apparent reason, please contact the office. b. Intermittent leg pain may also be experienced and should not be concerned about unless it worsens for no apparent reason. If so, please contact the office. 5. We will provide appropriate medication within the normal guidelines of their prescribed use. We will also be very cautious and aware of potential abuse and extended duration of patients' medication needs. a. Pain medications are for your comfort and to assist with sleep and rest so that the tissue can heal. They are not provided in order to return to normal activity and should not be used through the day. To do so or worsening pain at night can result from ongoing tissue damage and development of tolerance to the prescribed medicine. 6. Please allow 2-3 days to process refills. Prescriptions will not be mailed but must be picked up at the office. FOLLOW UP VISIT: Keep your scheduled follow-up appointment. Any questions, please call the office at . Pending Studies at Discharge: No Stand-Alone Forms: [facility], Smoking Cessation Medications and DC Order Prescriptions: New tramadol 50 mg tablet 50 mg PO Q6H PRN (Reason: pain, moderate) Qty: 30 0RF oxycodone 5 mg tablet 5 mg PO Q6H PRN (Reason: pain) Qty: 30 0RF Continued furosemide 40 mg Tablet 40 mg PO QAM metoprolol succinate 50 mg Tablet Extended Release 24 Hr 25 mg PO QAM pantoprazole 40 mg Tablet,Delayed Release (Dr/Ec) 40 mg PO QAM Xarelto 20 mg Tablet 20 mg PO QAM Rx Instructions: must administer with evening meal acetaminophen 650 mg Tablet Extended Release 1,950 mg PO DAILY PRN (Reason: Pain) Discharge Orders: Discharge Order (Routine); Ordered 10/22/23 Ordered By: Deandre Edmond Admission Data Admit Date/Time: 10/19/23 12:43 Attending Provider: Deandre Edmond Admit Provider: Deandre Edmond Primary Care Provider: Kristofer Ramirez Other Providers: Rocio Butts
--- NOTE | 2023-10-22 12:09 | Hospitalist Progress Note ---
Date of Service October 22, 2023 Assessment & Plan (1) Neurogenic claudication due to lumbar spinal stenosis: Plan: This is an 83 y/o male with lumbar spinal stenosis, hx of CAD, atrial fibrillation, tachy-dawood syndrome s/p PPM, Ellsworth's esophagus, ALEX, venous i nsufficiency, edema, and hypercholesterolemia who underwent L3-L5 decompression and fusion today by Dr. Edmond and for whom we have been consulted to assist with post-operative medical management. He currently has no specific complaints other than some post-operative back pain that is similar to usual. POD #3 L3-L5 decompression/fusion - Pain control, activity per primary team - Recommend resuming Xarelto as soon as okay with primary team - Encourage incentive spirometry (2) CAD (coronary artery disease): Plan: Chronic, stable Continue beta-ayse (3) Atrial fibrillation: Plan: Chronic, stable Continue beta-ayse, resume Xarelto per #1 (4) Barretts esophagus: Plan: Chronic, stable Continue outpatient PPI Admission and Anticipated Discharge Date Admission Date: October 19, 2023 Subjective Patient was seen and examined at bedside. He was sitting up in chair, on room air, NAD, resting comfortably. He reports operative site pain under control. Reports eating okay and moving bowels okay. Reports continued improvement in radicular symptoms. Physical Exam Physical Exam: General: awake, alert, NAD, sitting in bed and appears comfortable HEENT: no scleral icterus, moist oral mucosa Neck: trachea midline Heart: irregularly irregular Lungs: CTA bilaterally without W/R/R Abdomen: soft, NT, +BS Extremities: distal pulses intact and equal, no pedal edema Neurologic: moving all extremities; sensation to light touch intact bilateral feet; no focal deficits; oriented x 3; no dysarthria or confusion Low back with clean dressing without soakage. Results & Data Results & Data Vital Signs (Past 12 Hours) Vital Signs Temp Pulse Resp BP Pulse Ox O2 Del Method 10/22/23 07:41 36.9 C 64 18 146/82 H 95 Room Air 10/22/23 07:20 Room Air (2) CAD (coronary artery disease) Coronary Disease-Associated Artery/Lesion type: [place] artery [place] vs. transplanted heart: [place] heart Associated angina: unspecified whether angina present Qualified Code(s): I25.10 - Atherosclerotic heart disease of [place] coronary artery without angina pectoris (3) Atrial fibrillation Atrial fibrillation type: longstanding persistent Qualified Code(s): I48.11 - Longstanding persistent atrial fibrillation (4) Barretts esophagus Ellsworth's esophagus type: without dysplasia Qualified Code(s): K22.70 - Ellsworth's esophagus without dysplasia
== END 2023-10-22 12:33 | disposition home or self-care (01) | DRG 454 ==
LOC: ASU 07:48 → 3N 12:43

== ENCOUNTER 2024-10-15 06:37 | Inpatient (IN) ==
--- NOTE | 2024-09-22 15:09 | PAT Medication Instructions ---
Medication Instructions Date of Service September 22, 2024 Home Medications acetaminophen 650 mg tablet,extended release 1,300 mg PO DAILY PRN Pain furosemide 40 mg tablet 40 mg PO QAM metoprolol succinate 50 mg tablet,extended release 24 hr 25 mg PO QAM pantoprazole 40 mg tablet,delayed release 40 mg PO QAM rivaroxaban 20 mg tablet (Xarelto) 20 mg PO QAM MEDICATION INSTRUCTIONS: ASK your prescriber and surgeon rivaroxaban 20 mg tablet (Xarelto) 20 mg PO QAM DO NOT take the morning of surgery furosemide 40 mg tablet 40 mg PO QAM Take morning of surgery With a small sip of water, OTHERWISE NOTHING TO EAT OR DRINK AFTER MIDNIGHT: acetaminophen 650 mg tablet,extended release 1,300 mg PO DAILY PRN Pain metoprolol succinate 50 mg tablet,extended release 24 hr 25 mg PO QAM pantoprazole 40 mg tablet,delayed release 40 mg PO QAM Take evening before surgery acetaminophen 650 mg tablet,extended release 1,300 mg PO DAILY PRN Pain Other Notes If you have any questions please call us at [phone] or [phone] or [phone] or [phone]
--- NOTE | 2024-10-02 13:34 | Anesthesiology Consultation ---
Date of Service October 02, 2024 Assessment & Plan (1) Encounter for pre-operative examination: - will request most recent Schwartz pacemaker report, cardiology office note, Dr. Svetlana Gutierrez and medical clearance, Carmen Aponte. - Schwartz pacemaker. Chart Review Chart Review: Pending: Refer to Additional Notes / Consult section and Patient seen in Pre Admission Testing Teaching & Discussion Pre-Anesthesia Teaching/Discussion Notes: Instructed NPO after midnight before surgery, except medications with 15 cc of water. Medication instructions provided according to the PAT guidelines. History Surgery Operation Date: 10/15/24 07:45 Proposed Procedures p L2-L3 Decompression and Fusion, Connecting to Previous Hardware, Spinal Cord Monitoring - Deandre Edmond DO Height/Weight Height: 6 ft 1 in Weight: 102.7 kg Allergies Allergy/AdvReac Type Severity Reaction Status Date / Time INGRID Inhibitors Allergy Severe angioedema Verified 10/02/24 13:32 niacin Allergy Intermediate flushed Verified 09/22/24 14:17 skin, light headed amoxicillin Allergy Unknown Unknown Verified 09/22/24 14:17 gabapentin AdvReac Intermediate leg Verified 10/02/24 13:32 swelling Medications Home Medications Medication Instructions Recorded Confirmed Last Taken acetaminophen 650 mg 1,300 mg PO DAILY PRN Pain 09/18/23 09/22/24 10/19/23 05:30 tablet,extended release furosemide 40 mg tablet 40 mg PO QAM 09/18/23 09/22/24 10/18/23 07:00 metoprolol succinate 50 mg 25 mg PO QAM 09/18/23 09/22/24 10/19/23 05:30 tablet,extended release 24 hr pantoprazole 40 mg tablet,delayed 40 mg PO QAM 09/18/23 09/22/24 10/19/23 05:30 release rivaroxaban 20 mg tablet (Xarelto) 20 mg PO QAM 09/18/23 09/22/24 10/15/23 07:30 Past Medical History Medical History Atrial fibrillation Taking Xarelto/Metoprolol Follows with Dr. Lolita Blanton esophagus CAD (coronary artery disease) Cardiac cath 2020: Mild nonocclusive coronary disease > medical management recommended Chronic back pain COPD (chronic obstructive pulmonary disease) controlled, stable per pt-stopped inhaler use due to tachycardia GERD (gastroesophageal reflux disease) controlled, stable per pt History of diverticulitis (~1994) Hypertension controlled, stable per pt Obesity On anticoagulant therapy xarelto daily Osteoarthritis Pacemaker Schwartz, implanted [address] Mchugh Peripheral vascular disease Pulmonary hypertension Type 2 diabetes mellitus NIDDM Patient denies h/o stroke, seizures, heart attack, heart failure, blood clots/DVTs or blood transfusions. Exercise / Class Metabolic Activity II 4-5 Yardwork/Stairs/Walk up hill (chronic shortness of breath with one flight of stairs, denies chest discomfort-denies change or worsening) Past Family History Family History Other No family history of adverse response to anesthesia Past Surgical History Surgical History History of cardiac cath 2020- no stents History of cholecystectomy History of colonoscopy History of esophagogastroduodenoscopy (EGD) History of lumbar spinal fusion (09/2023) L3-L5 @ [facility] Dr. Edmond History of tooth extraction all teeth removed Status post placement of cardiac pacemaker 2020 ([facility]) Past Anesthesia History No Hx of Anesthesia Complications and No Family Hx of Anesthesia Complications History of PONV No Hx of PONV and No Hx of Motion Sickness Social History Smoking Status: Former smoker Do You Dip or Chew Tobacco: No Smoking End Date: 1971 Hx Alcohol Use: No Hx Substance Use: No substance use type: does not use Review of Systems Patient denies chest pain, shortness of breath, dyspnea on exertion, snoring, witnessed apneas, fever, chills, cough, wheezing, or palpitations. Physical Exam Vital Signs Vitals BP 130/80 P 60 TEMP 98.2 SP02 97% on RA RESP 18 Physical Patient resting comfortably in chair in no acute distress, alert and oriented, responding appropriately throughout visit Full cervical extension range of motion without pain TMD 3.5 finger breadths Mallampati Score 2 Dentition: intact, denies chipped or loose teeth, caps/crowns, implants or bridges Lungs: normal respiratory effort. Good air movement, clear throughout to auscultation, no adventitious breath sounds Cardiac: regular rate and rhythm, no murmurs noted Carotid arteries: negative bruit bilat Lab Results Anesthesia Preop Results Results Anesthesia Widget: WBC 8.63 K/ul (4.8-10.8) 10/02/24 Hgb 13.4 g/dl (14.0-18.0) L 10/02/24 Hct 40.6 % (42.0-52.0) L 10/02/24 Plt 214 K/uL (130-400) 10/02/24 PT 14.4 Seconds (9.0-12.0) H 10/02/24 PTT 40 Seconds (21-31) H 10/02/24 INR 1.4 (0.9-1.1) H 10/02/24 Urine Color Yellow 10/02/24 Urine Appearance Clear (Clear) 10/02/24 Urine pH 7.0 (4.5-7.5) 10/02/24 Urine Specific [place] 1.006 (1.000-1.030) 10/02/24 Urine Protein Negative (Negative) 10/02/24 Urine Glucose (UA) Negative (Negative) 10/02/24 Urine Ketones Negative (Negative) 10/02/24 Urine Blood Negative (Negative) 10/02/24 Urine Nitrite Negative (Negative) 10/02/24 Urine Bilirubin Negative (Negative) 10/02/24 Urine Urobilinogen Negative (Negative) 10/02/24 Urine Leukocyte Esterase Negative (Negative) 10/02/24 Blood Type O Positive 10/02/24 Antibody Screen NEGATIVE 10/02/24 Testing Laboratory Results 09/09/24 SODIUM: 138 POTASSIUM: 3.9 CHLORIDE: 104 CO2: 28 BUN: 17 CREATININE: 1.3 GLUCOSE: 112 A1c: 5.9% Electrocardiogram Date: 10/02/24 Ventricular-paced rhythm, rate 59 bpm Chest X-Ray Date: 10/02/24 No acute findings. Echocardiogram Date: 12/17/23 EF 55-60% Normal wall motion RVSP 35 mmHg Moderately dilated atria Mild mitral regurgitation Mild tricuspid regurgitation Mild pulmonic regurgitation Mildly dilated ascending aorta Stress Test Date: 09/25/23 MPHR 81% No transient ischemic dilation of the LV during stress No myocardial perfusion defects EF 71% Cardiac Catheterization Date: 10/11/20 Left main: mild proximal stenosis of 20-30% LAD: proximal segment of less than 20%, 30% stenosis just after the ostium of the second diagonal Cx: 30% proximal segment RCA: 30-40% stenosis eccentric stenosis Mild nonocclusive coronary disease
[2024-10-15] MEDS ORDERED: fentaNYL citrate PF 100 MCG/2 ML VIAL ONE ×2 (07:10→10:36)
[2024-10-15] MEDS ORDERED: PROPOFOL IV EMULSION 10 MG/ML 20 ML VIAL IV ONE (07:10)
[2024-10-15] MEDS ORDERED: MIDAZOLAM HCL 1 MG/ML 2ML VIAL ONE (07:10)
[2024-10-15] MEDS ORDERED: LIDOCAINE 2% 2 ML VIAL/AMP(20MG/ML) INFIL ONE (07:10)
[2024-10-15] MEDS ORDERED: ROCURONIUM BROMIDE 10 MG/ML 5 ML VIAL IV ONE (07:10)
[2024-10-15] MEDS ORDERED: GLYCOPYRROLATE 0.2 MG/ML VIAL ONE (07:10)
[2024-10-15] MEDS ORDERED: DEXAMETHASONE SOD INJ 4 MG/ML VIAL ONE (07:10)
[2024-10-15] MEDS ORDERED: ONDANSETRON INJ 2 MG/ML 2 ML VIAL ONE (07:10)
[2024-10-15] MEDS ORDERED: SUGAMMADEX SODIUM 200 MG/2 ML VIAL IV ONE (07:15)
[2024-10-15] MEDS: VANCOMYCIN HCL 1,500 MG in SODIUM CHLORIDE 0.9% 500 ML IV SCH (07:25)
--- OUTSIDE RECORDS SUMMARY | 2024-10-15 07:34 | External Medical Summary | Continuity of Care Document ---
Author Name Unknown Organization [facility] [address] [facility] Address [address] [place], [place] [id number] Care Team Providers Care Multimedia Coordinator Name Role Phone Carmen Aponte Primary Care Physician [phone] Encounter [facility] [id number] Date(s): 09/30/24 - 09/30/24 [facility] [address], [address] [place] [address] [phone] Encounter Diagnosis Body mass index [BMI] 29.0-29.9, adult(Discharge Diagnosis) - 09/30/24 Preop cardiovascular exam(Discharge Diagnosis) - 09/30/24 Atrial fibrillation, chronic(Discharge Diagnosis) - 09/30/24 Pacemaker(Discharge Diagnosis) - 09/30/24 Hypercholesterolemia(Discharge Diagnosis) - 09/30/24 CAD in [place] artery(Discharge Diagnosis) - 09/30/24 Discharge Disposition: Home or Self Care Attending Physician: DO Gutierrez Michelle L Encounter Type: Clinic Allergies, Adverse Reactions, Alerts Substance Criticality Severity Reaction Reaction Severity Status niacin redness/face Active PCN (penicillin) 1 rash? A ctive 120 years ago Assessment and Plan Extracted from: Title:Cardiology Office Visit Note Author:DO Gutierrez Michelle L Date:09/30/24 1.Preop cardiovascular exa m 2.Atrial fibrillation, chronic 3.Pacemaker [place] single lead RV pacemaker 2020 4.Hypercholesterolemia His most recent lipids done through your office are not optimally controlled but I think the Crestor was just restarted. We want a goal LDL cholesterol of less than 60 5.CAD in [place] artery Mild by cath 2020 From a cardiac standpoint he is considered to be an appropriate candidate for the upcoming back surgery. We can hold his Xarelto for 3 days prior to that surgery. It can be restarted as per Dr. Edmond's recommendations. From a cardiac standpoint I will get him set up with our pacemaker clinic here at [facility] in the spring. He will also be due for his annual echo at that time I will schedule that at that time as well. In the future if he plans to go ahead with knee surgery I will in all likelihood clear him for that as well. Thank you for allowing me to participate in the care of this very nice patient. I look forward to participating in their care with you. I will follow up after remaining tests are complete. Svetlana Gutierrez DO [facility] Literature Teachertaxicab driver [facility] [place] [facility] Medications furosemide 40 mg oral tablet Start: 09/30/24 3:05:00 PM EST, 1 tab, PO, Daily Start Date: 09/30/24 Status: Ordered Repeat number: 1 Metoprolol Succinate ER 50 mg oral tablet, extended release Start: 09/30/24 3:05:00 PM EST, 1 tab, PO, Daily Start Date: 09/30/24 Status: Ordered Repeat number: 1 pantoprazole 40 mg oral delayed release tablet Start: 09/30/24 3:05:00 PM EST, 1 tab, PO, Daily Start Date: 09/30/24 Status: Ordered Repeat number: 1 rosuvastatin 10 mg oral tablet Start: 09/30/24 3:06:00 PM EST, 1 tab, PO, Daily Start Date: 09/30/24 Status: Ordered Repeat number: 1 Xarelto 20 mg oral tablet Start: 09/30/24 3:05:00 PM EST, 1 tab, PO, qPM Start Date: 09/30/24 Status: Ordered Repeat number: 1 Mental Status 09/30/24 Barriers to Learning one year None evide nt Mandatory Health Literacy Documentation Yes Health Literacy Communication Barriers N ever Primary Language Armenian Problem List Condition Confirmation Course Effective Dates Status Health Status Informant Atrial fibrillation Confirmed Active Pacemaker Confirmed Active Atrial fibrillation, chronic Confirmed Active Hypercholesterolemia Confirmed Active Hypertension Confirmed Active Nonrheumatic mitral (valve) insufficiency Confirmed Active Preop cardiovascular exam Confirmed Active Nonrheumatic tricuspid (valve) insufficiency Confirmed Active Diagnosis Diagnosis Type Effective Dates Health Status Clinical Service Informant Preop cardiovascular exam Discharge Diagnosis 09/30/24 Non-Specifie d Pacemaker Discharge Diagnosis 09/30/24 Non-Specifie d Hypercholesterolemia Discharge Diagnosis 09/30/24 Non-Specifie d Body mass index [BMI] 29.0-29.9, adult Discharge Diagnosis 09/30/24 Non-Specifie d Atrial fibrillation, chronic Discharge Diagnosis 09/30/24 Non-Specifie d CAD in [place] artery Discharge Diagnosis 09/30/24 Non-Specifie d Procedures Procedure Date Related Diagnosis Body Site Status Cholecystostomy Completed Lumbar spine 1 Completed Pacemaker pulse generator 2 Completed 1bailey, several surgeries + [facility] MRI 1272- sn# [id number] RV: 2087Tc/52 sn# [id number] Vital Signs Most recent to oldest [Reference Range]: 1 Height 185 cm (09/30/24 3:17 PM) Patient Weight 99.8 kg (09/30/24 3:17 PM) Body Mass Index 29.16 kg/m2 (09/30/24 3:17 PM) Heart Rate 65 bpm (09/30/24 3:17 PM) Blood Pressure 122/72mmHg (09/30/24 3:17 PM) Cuff Pulse Pressure 50 mmHg (09/30/24 3:17 PM) Social History Social History Type Response Smoking Status Former Smoker, quit > 1 yr Sex Sex Representation Male (finding) Cardiology Outpatient Note * DO Gutierrez Michelle L: PERFORM Event Display: Cardiology Outpt Note Authored Date: [id number] Primary Care Provider KAYLYN Aponte, Carmen Grimaldo Referring Provider [place] [facility] Dr. Edmond Reason for Consultation Preop assessment Chief Complaint pt to re establish care with DR. Gutierrez. Pt hx of p. afib s/p pacemaker 2020. Getting another lumbar spine surgery in the next few weeks. no s/s bleeding. History of Present Illness Mr.Gary Lira is a very sweet [id number] been following for about the last 5 yearswho lives in [facility]. I previously [facility] He has been from his for the last 5 years. He washere today in routine cardiac follow-uphe is scheduled to haveback surgery with Dr. Dotson . He is also anticipating having left total knee replacement at some point in the future by Dr. Zhang. From a cardiac standpointMr. Lira underwent left heart catheterization back in 2020 and was found to haveminimal coronary artery disease. He has had chronic persistent atrial fibrillation as well as tachybradycardia syndrome and is status post a single leadRV pacemakerwhich was inserted in 2020 as well. His pacemaker was last interrogated in August 2024 and appears to be functioning normally. His battery is estimated at approximately 7 and half to 8 years. He is RV pacing approximately 44% of the time. He underwent his lastnuclear stress test which was a Lexiscan in August 2023 which was normal, his last echo was done in November 2023 which showedsignificantly enlarged both right and left atrianormalLV sizethickness and function with an estimated ejection fraction of 55 to 60%. He has both mild mitral tricuspid and pulm Atik insufficiency. His ascending thoracic aorta is mildly dilated. His pulmonary artery pressuresapproximately 35 mmHg. Overall his complaints are mostly of an orthopedic nature related to his back and his knees. He has no new cardiac complaints at this point. He does feel some shortness of breath with his normal activities however this is not new. His EKG shows chronic persistent atrial fibrillation. From a cardiovascular standpoint given his recent negative cardiac workup he is considered to george appropriate candidate for the upcoming back surgery. He can hold his Xareltofor 2 to [address] Edmond's recommendations. Review of Systems General: no fevers, chills, weight loss of gain HEENT: no changes in vision or hearing; no recent falls or head trauma Cardiac: No other symptoms other than reported in HPI Pulmonary: No symptoms other than reported in HPI Abdomen: No changes in bowel habits, nausea, vomiting, no BRBPR : no changes in urine frequency Extremities: no edema or claudication Physical Exam Vitals & Measurements HR:65(Monitored) BP:122/72 SpO2:97% HT:185cm WT:99.800kg(Dosing) WT:99.8kg BMI:29.16 Patient is awake alert and oriented x3 and in no acute distress HEENT: 2+ carotid upstrokes, no evidence of carotid bruits LUNGS: Clear to auscultation bilaterally no rales rhonchi or wheezing HEART: Regular rate and rhythm no appreciable murmurs rubs or gallops ABDOMEN: Soft nontender nondistended positive bowel sounds EXTREMITIES: No evidence of clubbing cyanosis or edema PSYCHIATRIC: Patients affect appeared appropriate Assessment/Plan 1.Preop cardiovascular exam 2.Atrial fibrillation, chronic 3.Pacemaker [place] single lead RV pacemaker 2020 4.Hypercholesterolemia His most recent lipids done through your office are not optimally controlled but I think the Crestor was just restarted. We want a goal LDL cholesterol of less than 60 5.CAD in [place] artery Mild by cath 2020 From a cardiac standpoint he is considered to be an appropriate candidate for the upcoming back surgery. We can hold his Xarelto for 3 days prior to that surgery. It can be restarted as per Dr. Edmond's recommendations. From a cardiac standpoint I will get him set [facility] the spring. He will also be due for his annual echo at that time I will schedule that at that time as well. In the future if he plans to go ahead with knee surgery I will inall likelihood clear him for that as well. Thank you for allowing me to participate in the care of this very nice patient. I look forward toparticipating in their care with you. I will follow up after remaining tests are complete. Svetlana Gutierrez DO [facility] Literature Teachertaxicab driver Heart and V[facility] [place] [facility] Attestation I, Svetlana Gutierrez DO [facility] have spent45 minutes performing the activities necessary in the patients visit. This time does not include separately reported service. Activities include the following: _x_ review of the medical record _x_ obtaining a history x__ physical exam/evaluation _x_counseling/educating patient/family/caregiver _x_ discussion/referral to other healthcare professionals x__ documenting care in the medical record x__ independent interpretation of results _x_ communication of results to patient/family/caregiver x__ coordination of care Problem List/Past Medical History Ongoing Atrial fibrillation Atrial fibrillation, chronic Hypercholesterolemia Hypertension Nonrheumatic mitral (valve) insufficiency Nonrheumatic tricuspid (valve) insufficiency Pacemaker Preop cardiovascular exam Procedure/Surgical History CholecystostomyLumbar spinePacemaker pulse generator Cardiac History Hypertension Chronic persistent A-fib with tachybradycardia syndrome status post single lead pacemaker 2020 Mild CAD by cardiac cath 2020 Hypercholesterolemia Medications furosemide(furosemide 40 mg oral tablet), 40 mg= 1 tab, PO, Daily metoprolol(Metoprolol Succinate ER 50 mg oral tablet, extended release), 50 mg= 1 tab, PO, Daily pantoprazole(pantoprazole 40 mg oral delayed release tablet), 40 mg= 1 tab, PO, Daily rivaroxaban(Xarelto 20 mg oral tablet), 20 mg= 1 tab, PO, qPM rosuvastatin(rosuvastatin 10 mg oral tablet), 10 mg= 1 tab, PO, Daily Allergies PCN (penicillin)rash? niacinredness/face Social History Smoking Status Former Smoker, quit > 1 yr Family History Heart disease: Father. Health Status Family Member(s) Electronic Signature on File CC: Carmen Aponte PA-C [place] [id number] * CC: Deandre Edmond DO [address] [id number] * Electronically Reviewed/Signed by: Svetlana Gutierrez DO Author Signature Dt/Tm:09/30/2024 04:40 PM Division of General Cardiology [facility] Patient Care team information Care Team Personnel Name: KAYLYN Aponte, Carmen Grimaldo Position: Referring Member Role: Primary Care Provider Address: [address] Telecom: [phone] Insurance Providers Guarantor name: CAROLANN Health Plan Information #: 1 Payer: [employer] PPO Member Number: [id number] Policy Number: NA Group Number: [id number] Health Plan Information #: 2 Payer: [employer] P[employer] Member Number: [id number] Policy Number: NA Group Number: [id number]
[2024-10-15] MEDS: LACTATED RINGER'S 1,000 ML IV SCH (07:48)
[2024-10-15] MEDS: GABAPENTIN 300 MG CAP PO SCH (07:49)
[2024-10-15] MEDS: LR 60ML/HR IV SCH (07:49)
[2024-10-15] MEDS: ACETAMINOPHEN 500 MG TAB PO SCH (08:30)
[2024-10-15] MEDS: CeleBREX 200 MG CAP PO SCH (08:31)
--- NOTE | 2024-10-15 09:23 | History & Physical Bridge Note ---
Date of Service October 15, 2024 History & Physical Bridge Note I have examined the patient, reviewed the History & Physical and in the interval since the performance of the History & Physical I have noted the following changes of clinical significance: no changes noted
--- NOTE | 2024-10-15 09:24 | History & Physical Report ---
Date of Service October 15, 2024 Assessment & Plan (1) Lumbar disc herniation with radiculopathy: Plan: L2-L3 decompression and fusion connecting to previous hardware History of Present Illness Chief Complaint: Back and leg pain Primary Care Provider: Kristofer Ramirez This is a 84-year-old male who presents marked client status with worsening back and leg pain and failing course of nonoperative care is here for surgical invention. Allergies Allergy/AdvReac Type Severity Reaction Status Date / Time INGRID Inhibitors Allergy Severe angioedema Verified 10/15/24 07:13 niacin Allergy Intermediate flushed Verified 10/15/24 07:13 skin, light headed amoxicillin Allergy Unknown Unknown Verified 10/15/24 07:13 gabapentin AdvReac Intermediate leg Verified 10/15/24 07:13 swelling Home Medications Medication Instructions Recorded Confirmed Type acetaminophen 650 mg 1,300 mg PO DAILY PRN Pain 09/18/23 10/15/24 History tablet,extended release furosemide 40 mg tablet 40 mg PO QAM 09/18/23 10/15/24 History metoprolol succinate 50 mg 25 mg PO QAM 09/18/23 10/15/24 History tablet,extended release 24 hr pantoprazole 40 mg tablet,delayed 40 mg PO QAM 09/18/23 10/15/24 History release rivaroxaban 20 mg tablet (Xarelto) 20 mg PO QAM 09/18/23 10/15/24 History Past Med/Surg History Problem List (Updated 10/15/24 @ 09:24 by Deandre Edmond, DO) Lumbar disc herniation with radiculopathy Neurogenic claudication due to lumbar spinal stenosis Encounter for pre-operative examination Sacral radiculopathy Idiopathic polyneuropathy Medical History Atrial fibrillation Taking Xarelto/Metoprolol Follows with 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 Mchugh Peripheral vascular disease Pulmonary hypertension Type 2 diabetes mellitus NIDDM Surgical History History of cardiac cath 2020- no stents History of cholecystectomy History of colonoscopy History of esophagogastroduodenoscopy (EGD) History of lumbar spinal fusion (09/2023) L3-L5 @ [facility] Dr. Edmond History of tooth extraction all teeth removed Status post placement of cardiac pacemaker 2020 (JORGE Linn) Family History Other No family history of adverse response to anesthesia Social History Smoking Status: Former smoker Tobacco Type: Cigarettes Smoking End Date: 1971; Second Hand Exposure: No; Do You Dip or Chew Tobacco: No; Tobacco Cessation Education Requested by Patient: No Hx Alcohol Use: No Hx Substance Use: No Preferred Language: South Sudanese Communication Ability: Effective Oil Pit Attendant Required: No Beliefs That Will Affect Care: None Current Living Situation: Alone Other Information That Helps Us Care for You: No Feels Safe at Home: Yes Safety Concerns: Feels Safe At This Time Assistive Devices: Denture - Upper, Denture - Lower and Glasses Physical Exam Physical Exam: Patient is alert and oriented Heart regular rhythm lungs clear Results & Data Results & Data Vital Signs (Past 12 Hours) Vital Signs Temp Pulse Resp BP Pulse Ox O2 Del Method 10/15/24 07:17 37 C 71 20 153/79 H 97 Room Air
[2024-10-15] MEDS ORDERED: ONDANSETRON INJ 2 MG/ML 2 ML VIAL IV PRN ×2 (09:27→13:33)
[2024-10-15] MEDS ORDERED: ATROPINE SULFATE 0.1 MG/ML 10ML SYR IV PRN (09:27)
[2024-10-15] MEDS ORDERED: ePHEDrine sulfate 50 MG/ML AMP IV PRN (09:27)
--- NOTE | 2024-10-15 11:35 | Operative Report ---
Post Operative Report Pre & Post Diagnosis Operation Date: 10/15/24 10:05 Pre-Op Diagnosis: #1 lumbar Disc Herniation with Radiculopathy #2 lumbar spondylosis with radiculopathy #3 lumbar spinal stenosis Post-Op Diagnosis: Same I identified the patient and participated in the time-out.: Yes Procedure Operation Date: 10/15/24 10:05 Actual Procedures #1 removal of posterior instrumentation L3-L5 #2 exploration of fusion L3-L5 per #3 lumbar decompression with bilateral medial facetectomies and foraminotomies L1-L2 L2-L3. #4 posterior spinal fusion L2-L3. #5 placement posterior instrumentation L2-L5. Using Chavez screws and rods. #6 interbody fusion L2- L3. #7 placement Spira 13 x 26 mm at L2-L3. #8 placement locally harvested morselized autograft in the posterior gutters. #9 placement infuse collagen sponge, with Koros in the posterior lateral gutters and os design interbody space. #10 application of versa wrap over the exposed dura. Surgeon Deandre Edmond, Linderman Operator Mary Dorado Estimated Blood Loss 350 Findings Consistent with Post-Op Diagnosis Specimens None Indications This is a 84-year-old male who presents with severe back and leg pain after failing course of nonoperative care is here for surgical invention. Description of Procedure Patient was met with identified informed consent obtained. Patient was then taken to the operative suite underwent ablation placed in a prone position on the Cornell table atop the Bruce frame. All bony prominences well-padded eyes inspected to ensure no external pressure placed upon the. This point lumbar spine was prepped and draped in normal sterile fashion. Sharp dissection with the assistance of Bovie cautery from down to and exposing the lamina and transverse processes of L2 and the instrumentation at L3 L4-5 bilaterally. Then proceeded move the end caps and rods bilaterally. And noticed several of the screws were loose to testing. Subsequently I removed and replaced all screws. The fusion mass was explored noted to be maturing. I then performed a complete laminectomy of L2 including bilateral medial facetectomies and foraminotomies as well as addressing fragments of disc material on the left exiting out of the foramen. Then performed partial laminectomy of L1 with bilateral medial f acetectomies to address all subarticular stenosis. Pedicle screws were then placed in L2 and previously placed in L3-L5. Process madhuri was then contoured and placed. By way of transforaminal approach on the left a complete discectomy of L2-L3 was performed endplates corrected to subcortical bleeding bone and a 13 x 26 mm spiral cage filled with os design bone graft tapped in position. The rods were then compressed locked in final position bilaterally. The transverse processes of L2-L3 burred to subcortical the bone. Infuse collagen sponge combined with Koros and local autograft placed in the posterior gutters. Versa wrap placed over the exposed dura. 15 round KRISTI drain inserted. The incision was then closed with 1 Vicryl the fascia 2-0 Vicryl subcutaneously and 4 Monocryl for final skin closure. Steri-Strips and sterile dressing placed. Patient waken taken the PACU stable condition. Please note spinal cord monitoring was utilized at the procedure no changes noted. Lastly Mary Dorado was present at the entire surgery and while the patient positioning complex portion of the surgery and final skin closure. I attest to the content of the Intraoperative Record and any orders documented therein. Any exceptions are noted below.
[2024-10-15] MEDS: BUPIVACAINE/EPINEPHRINE 0.25% 1:200,000 30 ML VIAL ONE (11:42)
[2024-10-15] MEDS: ceFAZolin 330 MG/ML 1 GM VIAL ONE (11:42)
--- NOTE | 2024-10-15 11:46 | Fluoroscopy Report ---
FL lumbar spine 2-3V CLINICAL HISTORY: L2-L3 DECOM/FUSION COMPARISON STUDY: 10/19/2023 FLUOROSCOPY TIME: 10 seconds FLUOROSCOPY IMAGES: 3 EXPOSURE DOSE: 6 mGy FINDINGS: Fluoroscopy was provided for lumbar surgery. IMPRESSION: Intraoperative fluoroscopy. ACT 112: Negative or not required by law. Electronically signed by: Sky Collado M.D. 10/15/2024 11:45 AM
[2024-10-15] MEDS: FLOSEAL HEMOSTATIC MATRIX 10ML TOP ONE (11:52)
[2024-10-15] MEDS: fentaNYL citrate PF 100 MCG/2 ML VIAL IV PRN (12:37)
[2024-10-15] MEDS ORDERED: SOD PHOSPHATE/SOD BIPHOSPHATE ENEMA 132 ML BTL PR PRN (13:33)
[2024-10-15] MEDS ORDERED: DO NOT ADMINISTER PNEUMOCOCCAL VACCINE PRN (13:33)
[2024-10-15] MEDS ORDERED: NALOXONE HCL 0.4 MG/1 ML VIAL/CARP IV PRN (13:33)
[2024-10-15] MEDS ORDERED: PROMETHAZINE 12.5 MG/50.5 ML BAG IV PRN (13:33)
[2024-10-15] MEDS ORDERED: ONDANSETRON 4 MG OD TAB PO PRN (13:33)
[2024-10-15] MEDS ORDERED: bisacodyL 10 MG SUPP PR PRN (13:33)
[2024-10-15] MEDS ORDERED: diphenhydrAMINE Capsule 25 MG CAP PO PRN (13:33)
[2024-10-15] MEDS ORDERED: HYDROmorphone INJ 1 MG/ML SYRINGE IV PRN (13:33)
[2024-10-15] MEDS ORDERED: ALUMINUM/MAGNESIUM SUSP 30 ML UDC PO PRN (13:33)
[2024-10-15] MEDS ORDERED: hydrOXYzine HCl 25 MG TAB PO PRN (13:33)
[2024-10-15] MEDS ORDERED: FAMOTIDINE 20 MG TAB PO PRN (13:33)
[2024-10-15] MEDS ORDERED: HYDROmorphone INJ 0.5 MG/0.5 ML SYR IV PRN (13:33)
[2024-10-15] MEDS ORDERED: DO NOT ADMINISTER FLU VACCINE PRN (13:33)
[2024-10-15] MEDS ORDERED: METOCLOPRAMIDE HCL INJ 5 MG/ML 2 ML VIAL IV PRN (13:33)
[2024-10-15] MEDS ORDERED: MAGNESIUM HYDROXIDE SUSP 30 ML UDC PO PRN (13:33)
[2024-10-15] MEDS ORDERED: traMADol HCL 50 MG TABLET PO PRN (13:33)
[2024-10-15] MEDS ORDERED: LORazepam 2 MG/1 ML VIAL IV PRN (13:33)
--- NOTE | 2024-10-15 14:59 | Consultation ---
<Statement entered by Marcelo Andrade DO - 10/15/24 17:53> I have seen and examined the patient and have discussed the case with the advance practice provider. I have reviewed the advanced practitioner's documentation, and I agree with, and take responsibility for that plan of care. Patient seen postoperatively. Reports his pain is well-controlled. No shortness of breath. Discussed plan of care as outlined below I spent a total of 10 minutes coordinating, documenting, and providing care for this patient excluding time spent by another provider/QHP. Date of Consultation October 15, 2024 Assessment & Plan (1) Status post lumbar surgery: (2) Neurogenic claudication due to lumbar spinal stenosis: Post op day# 0 S/P removal instrumentation L3-L5, decompression L1-L3, and fusion L2-L3, placement posterior instrumentation L2-L5 by Dr Feli MANE#[id number] Pain management per ortho Wound management per ortho PT/OT as appropriate DVT prophylaxis per ortho Incentive spirometry Monitor H&H for acute blood loss anemia; pre-op Hgb: 13.4 (3) CAD (coronary artery disease): Denies CP, SOB Stable Continue metoprolol succinate (4) Atrial fibrillation: Chronic a-fib anticoagulated on Xarelto Xarelto held prior to surgery. Resume as per ortho spine Continue metoprolol succinate (5) Tachy-dawood syndrome: S/P pacemaker (6) Barretts esophagus: Continue PPI Chronic LE edema Hold lasix and reassess tomorrow DVT Prophylaxis SCDs Disposition per primary service Pt was seen and care coordinated with Dr Andrade. See addendum Thank you for this consultation. We will follow the patient with you during their hospital stay. You can reach a member of the [facility] Hospitalist Team 19/02 via [employer] History of Present Illness Requesting Physician: Dr Edmond Reason for Consultation: Post op medical management Attending Physician: Deandre Edmond DO History of Present Illness Patient is 84 year old male with PMH CAD, chronic atrial fibrillation anticoagulated on Xarelto, tachybradycardia syndrome, s/p pacemaker in 2020, lower extremity edema, Ellsworth's esophagus seen in medical consultation s/p removal instrumentation L3-L5, decompression L1-L3, and fusion L2-L3, placement posterior instrumentation L2-L5 today by Dr Edmond. Post op patient reports some back pain but feels it is moderately controlled at this time. Prior to surgery he reported left leg symptoms but patient unsure how is legs are feeling currently. States able to move legs in bed without difficulty. Last BM reported yesterday. Has [place] cath in place. Sipping on water. Denies N/V/D, ROTHMAN, dizziness, CP, SOB, palpitations, cough, sore throat, rhinorrhea, abdominal pain, urinary symptoms. Allergies Allergy/AdvReac Type Severity Reaction Status Date / Time INGRID Inhibitors Allergy Severe angioedema Verified 10/15/24 07:13 niacin Allergy Intermediate flushed Verified 10/15/24 07:13 skin, light headed amoxicillin Allergy Unknown Unknown Verified 10/15/24 07:13 gabapentin AdvReac Intermediate leg Verified 10/15/24 07:13 swelling Home Medications Medication Instructions Recorded Confirmed Type acetaminophen 650 mg 1,300 mg PO DAILY PRN Pain 09/18/23 10/15/24 History tablet,extended release furosemide 40 mg tablet 40 mg PO QAM 09/18/23 10/15/24 History metoprolol succinate 50 mg 25 mg PO QAM 09/18/23 10/15/24 History tablet,extended release 24 hr pantoprazole 40 mg tablet,delayed 40 mg PO QAM 09/18/23 10/15/24 History release rivaroxaban 20 mg tablet (Xarelto) 20 mg PO QAM 09/18/23 10/15/24 History Patient History Medical History GERD (gastroesophageal reflux disease) controlled, stable per pt History of diverticulitis (~1994) Hypertension controlled, stable per pt Peripheral vascular disease Type 2 diabetes mellitus NIDDM COPD (chronic obstructive pulmonary disease) controlled, stable per pt-stopped inhaler use due to tachycardia Pulmonary hypertension On anticoagulant therapy xarelto daily CAD (coronary artery disease) Cardiac cath 2020: Mild nonocclusive coronary disease > medical management recommended Obesity Osteoarthritis Chronic back pain Barretts esophagus Atrial fibrillation Taking Xarelto/Metoprolol Follows with Dr. Mchugh Pacemaker Schwartz, implanted [address] Mchugh Surgical History History of lumbar spinal fusion (09/2023) L3-L5 @ [facility] Dr. Edmond History of colonoscopy History of esophagogastroduodenoscopy (EGD) History of tooth extraction all teeth removed History of cholecystectomy History of cardiac cath 2020- no stents Status post placement of cardiac pacemaker 2020 ([facility]) Family History Other No family history of adverse response to anesthesia Social History Smoking Status: Former smoker Tobacco Type: Cigarettes Smoking End Date: 1971; Second Hand Exposure: No; Do You Dip or Chew Tobacco: No; Tobacco Cessation Education Requested by Patient: No Hx Alcohol Use: No Hx Substance Use: No Preferred Language: Icelandic Communication Ability: Effective 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: No Beliefs That Will Affect Care: None Current Living Situation: Alone Other Information That Helps Us Care for You: No Feels Safe at Home: Yes Safety Concerns: Feels Safe At This Time Assistive Devices: Denture - Upper, Denture - Lower and Glasses Review of Systems Review of Systems: All systems reviewed & are unremarkable except as noted in HPI & below Physical Exam Physical Exam: General: no distress, WDWN Head: normocephalic, atraumatic Eyes: conjunctiva non-injected, anicteric ENT: normal inspection external ears, nose, mucous membranes moist Neck: supple, trachea midline Lungs: clear, no respiratory distress, no wheezing/rhonchi/rales CV: irregularly irregular, rate 74, trace pretibial edema Abd: normal BS, soft, non-tender Back: surgical dressing in place and dry, KRISTI drain with serosanguineous drainage. Ext: no cyanosis, no calf tenderness, bilateral pedal pushes and pulls intact, sensation to light touch intact Neuro: A&O x 3, no focal deficits noted, normal affect Skin: warm, dry Results & Data Vital Signs (Past 12 Hours) Vital Signs Temp Pulse Pulse Resp BP Pulse Ox O2 Del Method 10/15/24 14:28 36.4 C L 70 14 109/66 97 Room Air 10/15/24 14:00 61 16 118/69 96 Room Air 10/15/24 13:33 36.7 C 64 14 130/74 95 Room Air 10/15/24 13:10 70 12 121/60 99 Nasal Cannula 10/15/24 12:55 36.4 C L 63 12 131/59 L 98 Nasal Cannula 10/15/24 12:40 68 12 129/67 92 Nasal Cannula 10/15/24 12:30 73 15 122/69 95 Room Air 10/15/24 12:20 71 15 103/74 95 Room Air 10/15/24 12:10 73 15 122/66 98 Oxymask 10/15/24 12:00 72 12 134/66 98 Oxymask 10/15/24 11:51 36.3 C L 88 16 141/79 H 100 Oxymask 10/15/24 07:17 37 C 71 20 153/79 H 97 Room Air O2 Flow Rate 10/15/24 14:28 10/15/24 14:00 10/15/24 13:33 10/15/24 13:10 2 10/15/24 12:55 2 10/15/24 12:40 2 10/15/24 12:30 10/15/24 12:20 10/15/24 12:10 8 10/15/24 12:00 8 10/15/24 11:51 8 10/15/24 07:17 (3) CAD (coronary artery disease) Coronary Disease-Associated Artery/Lesion type: [place] artery [place] vs. transplanted heart: [place] heart Associated angina: unspecified whether angina present Qualified Code(s): I25.10 - Atherosclerotic heart disease of [place] coronary artery without angina pectoris (4) Atrial fibrillation Atrial fibrillation type: longstanding persistent Qualified Code(s): I48.11 - Longstanding persistent atrial fibrillation (6) Barretts esophagus Ellsworth's esophagus type: without dysplasia Qualified Code(s): K22.70 - Ellsworth's esophagus without dysplasia
--- NOTE | 2024-10-15 15:12 | Anesthesiology Progress Note ---
Date of Service October 15, 2024 Anesthesia Post Procedure Vital Signs Vital Signs: Temp Pulse Pulse Resp BP Pulse Ox O2 Del Method 10/15/24 14:28 36.4 C L 70 14 109/66 97 Room Air 10/15/24 14:00 61 16 118/69 96 Room Air 10/15/24 13:33 36.7 C 64 14 130/74 95 Room Air 10/15/24 13:10 70 12 121/60 99 Nasal Cannula 10/15/24 12:55 36.4 C L 63 12 131/59 L 98 Nasal Cannula 10/15/24 12:40 68 12 129/67 92 Nasal Cannula 10/15/24 12:30 73 15 122/69 95 Room Air 10/15/24 12:20 71 15 103/74 95 Room Air 10/15/24 12:10 73 15 122/66 98 Oxymask 10/15/24 12:00 72 12 134/66 98 Oxymask 10/15/24 11:51 36.3 C L 88 16 141/79 H 100 Oxymask 10/15/24 07:17 37 C 71 20 153/79 H 97 Room Air O2 Flow Rate 10/15/24 14:28 10/15/24 14:00 10/15/24 13:33 10/15/24 13:10 2 10/15/24 12:55 2 10/15/24 12:40 2 10/15/24 12:30 10/15/24 12:20 10/15/24 12:10 8 10/15/24 12:00 8 10/15/24 11:51 8 10/15/24 07:17 Pain Intensity Back: Pain Intensity: 2 Transfer of Care Handoff Completed per policy Notes Mental Status: alert / awake / arousable and participated in evaluation Patient Amnestic to Procedure: Yes Nausea / Vomiting: adequately controlled Pain: adequately controlled Airway Patency, RR, SpO2: stable & adequate BP & HR: stable & adequate Hydration State: stable & adequate Anesthetic Complications: no major complications apparent and Pt Satisfied with anesthetic care
[2024-10-15] MEDS: oxyCODONE HCL IR 5 MG TAB (IMMEDIATE RELEASE) PO PRN (15:45)
[2024-10-15] MEDS: CLINDAMYCIN/D5W 600 MG/50 ML BAG IV SCH (17:48)
[2024-10-15] MEDS: ACETAMINOPHEN 1,000 MG/100 ML VIAL IV PRN (19:56)
[2024-10-15] MEDS: DOCUSATE SODIUM/SENNA 50/8.6MG TAB PO SCH (21:22)
[2024-10-15] MEDS: LORazepam 0.5 MG TAB PO PRN (21:32)
[2024-10-16] MEDS: POLYETHYLENE (MIRALAX) 17 GM PACK PO SCH (05:17)
[2024-10-16] MEDS: ACETAMINOPHEN 500 MG TAB PO PRN (05:17)
[2024-10-16 07:39] LABS: Basophils # (auto) 0.01 K/uL (0.00-0.20); Basophils % (auto) 0.1 %; Eosinophils # (auto) 0.01 K/uL (0.00-0.50); Eosinophils % (auto) 0.1 %; Hematocrit (blood only) 34.7 % (42.0-52.0); Hemoglobin 11.9 g/dl (14.0-18.0); Immature Granulocytes # (auto) 0.05 K/uL (0.01-0.20); Immature Granulocytes % (auto) 0.4 %; Lymphocytes # (auto) 1.74 K/uL (1.20-3.40); Mean Corpuscular Hemoglobin 32.5 pg (25.0-34.0); Mean Corpuscular Hgb Conc 34.3 g/dL (32.0-36.0); Mean Corpuscular Volume 94.8 fL (80.0-100.0); Mean Platelet Volume 10.7 fL (9.4-12.4); Monocytes # (auto) 1.09 K/uL (0.11-0.59); Monocytes % (auto) 9.4 %; Neutrophils # (auto) 8.73 K/uL (1.40-6.50); Platelet Count 209 K/uL (130-400); RDW Coefficient of Variation 13.3 % (11.5-14.5); RDW Standard Deviation 46.6 fL (36.4-46.3); Red Blood Count 3.66 M/uL (4.70-6.10); White Blood Count 11.63 K/ul (4.8-10.8)
--- NOTE | 2024-10-16 07:58 | Hospitalist Progress Note ---
Date of Service October 16, 2024 Assessment & Plan (1) Lumbar disc herniation with radiculopathy: (2) Status post lumbar surgery: (3) Neurogenic claudication due to lumbar spinal stenosis: Plan: Post op day# 1 S/P removal instrumentation L3-L5, decompression L1-L3, and fusion L2-L3, placement posterior instrumentation L2-L5 by Dr Edmond EBL#[id number]. Pain management per ortho Wound management per ortho PT/OT as appropriate; PT to work with patient on stairs prior to anticipated DC this weekend. DVT prophylaxis per ortho Incentive spirometry Monitor H&H for acute blood loss anemia; pre-op Hgb: 13.4--> today 11.9. No overt signs of active bleeding outside of KRISTI drain. Will trend in a.m. Parish to be DC today (4) CAD (coronary artery disease): Plan: Denies CP, SOB Stable Continue metoprolol succinate (5) Atrial fibrillation: Plan: Chronic a-fib anticoagulated on Xarelto Xarelto held prior to surgery and has been resumed. Continue metoprolol succinate (6) Tachy-dawood syndrome: Plan: S/P pacemaker no history of AMI/CVA. (7) Barretts esophagus: Plan: Continue PPI Chronic LE edema; Lasix on hold. No overt signs of volume overload. DVT Prophylaxis: SCDs Disposition per primary service; likely DC this weekend. Admission and Anticipated Discharge Date Admission Date: October 15, 2024 Supervising Physician Co-Signing Physician Notes Patient is seen and examined at bedside. Back pain at surgical site is con trolled. Had physical therapy evaluation earlier today. Denies any chest pain, dyspnea, nausea, vomiting, abdominal pain. On exam patient is moderately built and nourished, no apparent distress, normocephalic atraumatic, EOMI, normal breath sounds, clear to auscultation, S1-S2, no murmur, no pedal edema, abdomen soft, nontender, normal bowel sounds, alert, awake, oriented, grossly no focal deficits, back: Surgical site in dressing, drain present. Patient is currently being managed for postoperative state--lumbar spinal stenosis with neurogenic claudication s/p lumbar surgery by Dr. Edmond. Continue home medications for coronary artery disease, atrial fibrillation. Resume anticoagulation with Xarelto once okay with surgery. I personally interviewed and examined the patient at bedside. I have reviewed the advanced practitioner's documentation on the date of service referred in note and agree with plan. Patient's care is coordinated with Sally SALAMANCA. Please refer to the documentation above for details of patient's presentation and for discussion of other issues. I spent a total [id number] coordinating, documenting, and providing care for this patient excluding time spent in the performance of separately billed services or time spent by another provider/QHP. Subjective Patient sitting in his hospital bedside chair in no apparent distress. Patient denies neuropathy in extremities. Patient denies chest pain, dizziness, shortness of breath. Patient reportedly has been ambulating around with his walker and throughout the halls. Patient reports having 4 steps to enter his home and 6 steps up to the main living space; bilevel home. He does live alone. Reportedly had home health s ervices during previous surgery. Will relay to PT 1 dose of oxycodone over the past 24 hours. Without much relief feels that Tylenol works better for him. Xarelto resumed this morning. See A/P below for further details. Review of Systems Review of Systems: Neuro: (-) Falls, trauma, slurred speech (+) incisional pain HEENT: (-) ROTHMAN, dizziness, dysphagia, visual or auditory changes CV: (-) CP, palpitations, swelling Resp: (-) SOB GI: (-) appetite changes, N/V/D, bowel changes : (-) urinary changes Skin: (-) rashes Psych: (-) anxiety, depression Physical Exam Physical Exam: Neuro: AAOx4, PERRLA, no aphagia, memory changes, CNII-XII grossly intact HEENT: head normocephalic, moist mucus membranes CV: S1/S2, (-) M/G/R, (-) edema, cap refill < 3 seconds Resp: Lungs CTA in all ann. On RA GI: Abdomen S/NT/ND, Ax4 bowel sounds, (-) CVA tenderness Musculoskeletal: 5/5 B/L UE strength, 5/5 B/L LE strength. Uses a walker postoperatively. Skin: (-) rashes , (-) erythema. Psych: euthymic mood Results & Data Results & Data Vital Signs (Past 12 Hours) Vital Signs Temp Pulse Resp BP Pulse Ox O2 Del Method 10/16/24 07:15 36.6 C 54 L 16 106/57 L 94 Room Air 10/16/24 03:00 36.5 C 60 18 127/73 94 Room Air 10/16/24 01:45 64 16 109/66 94 Room Air 10/15/24 23:00 36.7 C 64 18 108/66 93 Room Air 10/15/24 22:20 36.6 C 68 20 120/72 96 Room Air 10/15/24 20:20 Room Air 10/15/24 20:00 63 117/73 95 Room Air Laboratory Results Short CBC 10/16/24 Range/Units 06:49 WBC 11.63 H (4.8-10.8) K/ul Hgb 11.9 L (14.0-18.0) g/dl Hct 34.7 L (42.0-52.0) % Plt Count 209 (130-400) K/uL BMP 10/16/24 06:49 Sodium 137 Potassium 4.0 Chloride 102 Carbon Dioxide 29 BUN 19 Creatinine 0.92 Glucose 133 H Calcium 9.0 (4) CAD (coronary artery disease) Associated angina: unspecified whether angina present Coronary Disease- Associated Artery/Lesion type: [place] artery [place] vs. transplanted heart: [place] heart Qualified Code(s): I25.10 - Atherosclerotic heart disease of [place] coronary artery without angina pectoris (5) Atrial fibrillation Atrial fibrillation type: longstanding persistent Qualified Code(s): I48.11 - Longstanding persistent atrial fibrillation (7) Barretts esophagus Ellsworth's esophagus type: without dysplasia Qualified Code(s): K22.70 - Ellsworth's esophagus without dysplasia
[2024-10-16 08:10] LABS: BUN Creatinine Ratio 20.7 (10-20); Creatinine Clr Calc Pharmacy 77.2 ml/min
[2024-10-16] MEDS: METOPROLOL SUCC 25MG EXT REL TAB PO SCH (08:18)
[2024-10-16] MEDS: PANTOprazole 40 MG TAB PO SCH (08:18)
[2024-10-16] MEDS: dexAMETHasone 6 MG in SYRINGE 0 ML IV SCH (08:18)
--- NOTE | 2024-10-16 08:27 | Orthopedic Progress Note ---
Date of Service October 16, 2024 Assessment & Plan (1) Lumbar disc herniation with radiculopathy: Plan: At this time we will continue physical therapy monitor his KRISTI operatively discharge home this weekend. Admission and Anticipated Discharge Date Admission Date: October 15, 2024 Subjective Back pain is controlled left leg symptoms improved Physical Exam Physical Exam: Patient appears comfortable. Discussed when to testing. Results & Data Vital Signs (Past 12 Hours) Vital Signs Temp Pulse Resp BP Pulse Ox O2 Del Method 10/16/24 07:15 36.6 C 54 L 16 106/57 L 94 Room Air 10/16/24 03:00 36.5 C 60 18 127/73 94 Room Air 10/16/24 01:45 64 16 109/66 94 Room Air 10/15/24 23:00 36.7 C 64 18 108/66 93 Room Air 10/15/24 22:20 36.6 C 68 20 120/72 96 Room Air
[2024-10-16] MEDS ORDERED: FUROSEMIDE 40 MG TAB PO SCH (09:00)
[2024-10-17 07:12] LABS: BUN Creatinine Ratio 19.1 (10-20); Calcium 9.2 mg/dl (8.6-10.3); Creatinine Clr Calc Pharmacy 75.6 ml/min; Potassium 4.1 mmol/L (3.5-5.1)
[2024-10-17 07:16] LABS: Hematocrit (blood only) 33.6 % (42.0-52.0); Hemoglobin 11.5 g/dl (14.0-18.0); Mean Corpuscular Hemoglobin 32.6 pg (25.0-34.0); Mean Corpuscular Hgb Conc 34.2 g/dL (32.0-36.0); Mean Corpuscular Volume 95.2 fL (80.0-100.0); Platelet Count 192 K/uL (130-400); RDW Coefficient of Variation 13.5 % (11.5-14.5); RDW Standard Deviation 47.8 fL (36.4-46.3); Red Blood Count 3.53 M/uL (4.70-6.10); White Blood Count 10.54 K/ul (4.8-10.8)
--- NOTE | 2024-10-17 07:24 | Hospitalist Progress Note ---
Date of Service October 17, 2024 Assessment & Plan (1) Lumbar disc herniation with radiculopathy: (2) Status post lumbar surgery: (3) Neurogenic claudication due to lumbar spinal stenosis: Plan: Post op day# 2 S/P removal instrumentation L3-L5, decompression L1-L3, and fusion L2-L3, placement posterior instrumentation L2-L5 by Dr Feli MANE#[id number]. Hgb 11.8 today. Pain management per ortho Wound management per ortho PT/OT as appropriate; PT to work with patient on stairs prior to anticipated DC this weekend. DVT prophylaxis per ortho Incentive spirometry Monitor H&H for acute blood loss anemia; pre-op Hgb: 13.4--> today 11.9. No overt signs of active bleeding outside of KRISTI drain. Will trend in a.m. [place] to be DC today (4) CAD (coronary artery disease): Plan: Denies CP, SOB Stable Continue metoprolol succinate (5) Atrial fibrillation: Plan: Chronic a-fib anticoagulated on Xarelto Xarelto held prior to surgery; plan to restart on 10/18 at home. Continue metoprolol succinate (6) Tachy-dawood syndrome: Plan: S/P pacemaker no history of AMI/CVA. (7) Barretts esophagus: Plan: Continue PPI Chronic LE edema; Lasix on hold; continue to hold until f/u with PCP No overt signs of volume overload. DVT Prophylaxis: SCDs Disposition per primary service; plan for DC today. Code Status: Full Code PCP: Kristofer meier I spent a total of 51 minutes coordinating, documenting, and providing care for this patient excluding time spent inthe performance of separately billed services or time spent by another provider/QHP. Admission and Anticipated Discharge Date Admission Date: October 15, 2024 Supervising Physician Co-Signing Physician Notes Patient is seen and examined at bedside on day of discharge. Back pain at surgical site is well controlled. Ambulating in the hallways with no issue. Plan to be discharged home today. Drain removed today. Denies any chest pain, dyspnea, nausea, vomiting, abdominal pain. On exam patient is moderately built and nourished, no apparent distress, normocephalic atraumatic, EOMI, normal breath sounds, clear to auscultation, S1-S2, no murmur, no pedal edema, abdomen soft, nontender, normal bowel sounds, alert, awake, oriented, grossly no focal deficits, back: Surgical site in dressing. Patient is currently being managed for postoperative state--lumbar spinal stenosis with neurogenic claudication s/p lumbar surgery by Dr. Edmond. Continue home medications for coronary artery disease, atrial fibrillation. Resume anticoagulation with Xarelto from tomorrow. Advised to follow-up with PCP on discharge. I personally interviewed and examined the patient at bedside. I have reviewed the advanced practitioner's documentation on the date of service referred in note and agree with plan. Patient's care is coordinated with Sally SALAMANCA. Please refer to the documentation above for details of patient's presentation and for discussion of other issues. I spent a total [id number] coordinating, documenting, and providing care for this patient excluding time spent in the performance of separately billed services or time spent by another provider/QHP. Subjective Patient Ambulating the hallway no apparent distress. Worked with PT this morning and was able to do 6-8 stairs without difficulty. Patient lives in a bilevel home and has sick steps to enter and 6 steps to go up to the main living area. Patient's son lives right next door and daughter lives in the area as well who will be helping him for the next few days. He does live alone at baseline and is independent. After discussion with PT patient relatively independent and no need for continued home services at this time. Reports having 2 BMs overnight. Discussed with Dr. Edmond regarding his discharge today below for plans for restarting Xarelto on 10/18. Patient denies neuropathy in extremities. Patient denies chest pain, dizziness, shortness of breath. Patient reportedly has been ambulating around with his walker and throughout the halls. See A/P below for further details. Review of Systems Review of Systems: Neuro: (-) Falls, trauma, slurred speech (+) incisional pain HEENT: (-) ROTHMAN, dizziness, dysphagia, visual or auditory changes CV: (-) CP, palpitations, swelling Resp: (-) SOB GI: (-) appetite changes, N/V/D, bowel changes : (-) urinary changes Skin: (-) rashes Psych: (-) anxiety, depression Physical Exam Physical Exam: Neuro: AAOx4, PERRLA, no aphagia, memory changes, CNII-XII grossly intact HEENT: head normocephalic, moist mucus membranes CV: S1/S2, (-) M/G/R, (-) edema, cap refill < 3 seconds Resp: Lungs CTA in all ann. On RA GI: Abdomen S/NT/ND, Ax4 bowel sounds, (-) CVA tenderness Musculoskeletal: 5/5 B/L UE strength, 5/5 B/L LE strength. Uses a walker postoperatively. Skin: (-) rashes , (-) erythema. Psych: euthymic mood Results & Data Results & Data Vital Signs (Past 12 Hours) Vital Signs Temp Pulse Resp BP Pulse Ox O2 Del Method 10/16/24 20:45 Room Air 10/16/24 20:24 36.9 C 67 18 130/72 94 Room Air Laboratory Results Short CBC 10/17/24 Range/Units 06:22 WBC 10.54 (4.8-10.8) K/ul Hgb 11.5 L (14.0-18.0) g/dl Hct 33.6 L (42.0-52.0) % Plt Count 192 (130-400) K/uL BMP 10/17/24 06:22 Sodium 138 Potassium 4.1 Chloride 103 Carbon Dioxide 31 BUN 18 Creatinine 0.94 Glucose 110 H Calcium 9.2 (4) CAD (coronary artery disease) Associated angina: unspecified whether angina present Coronary Disease- Associated Artery/Lesion type: [place] artery [place] vs. transplanted heart: [place] heart Qualified Code(s): I25.10 - Atherosclerotic heart disease of [place] coronary artery without angina pectoris (5) Atrial fibrillation Atrial fibrillation type: longstanding persistent Qualified Code(s): I48.11 - Longstanding persistent atrial fibrillation (7) Barretts esophagus Ellsworth's esophagus type: without dysplasia Qualified Code(s): K22.70 - [place]sworth's esophagus without dysplasia
[2024-10-17 07:26] VITALS: BP 107/66; PULSE 60; RESP 16; TEMP 97.3; O2SAT 97
--- NOTE | 2024-10-17 10:00 | Discharge Summary ---
Date of Service October 17, 2024 Admission HPI Per Admitting Provider This is a 84-year-old male who presents marked client status with worsening back and leg pain and failing course of nonoperative care is here for surgical invention. Principal Diagnosis Lumbar spondylosis with radiculopathy Discharge Data Allergies Allergy/AdvReac Type Severity Reaction Status Date / Time INGRID Inhibitors Allergy Severe angioedema Verified 10/15/24 07:13 niacin Allergy Intermediate flushed Verified 10/15/24 07:13 skin, light headed amoxicillin Allergy Unknown Unknown Verified 10/15/24 07:13 gabapentin AdvReac Intermediate leg Verified 10/15/24 07:13 swelling Consultations 10/15/24 13:33 Consult Hospitalist Routine Procedures Performed Operation Date: 10/15/24 10:05 Actual Procedures p L2-L3 Decompression and Fusion, Hardware Removal, Spinal Cord Monitoring(Not Applicable) - Deandre Edmond DO Ordered Studies 10/15/24 [place] lumbar spine 2-3V Routine Hospital Course (1) Neurogenic claudication due to lumbar spinal stenosis: Patient underwent lumbar decompression fusion trial as well as taken orthopedic for postoperative. Postop he progressed appropriate. Marked improvement of his leg symptoms. KRISTI drain decreasing. Excellent strength testing. Pain well- controlled. Simply discharged home. Discharge orders instructions from the chart for further review. Total Time Total Time Spent Total Time Spent (In Minutes): 20 minutes Discharge Plan Discharge Items Patient Disposition: Home - Home Health Services Reason For Visit: Lumbar Disc Herniation with Radiculopathy, Left Le Discharge Diagnosis: Lumbar discrimination with radiculopathy Activity: As commented below Non-emergency contact: Primary Care Provider Call non-emergency contact if: you have any medication questions Follow-up/Referrals: Kristofer Ramirez [Outside Practitioners] - Diet: Regular Addtl Attending Provider Instructions: ACTIVITY RECOMMENDATIONS: SELF CARE INSTRUCTIONS AFTER THORACIC/LUMBAR FUSIONS 1. You may walk to your tolerance. It is good exercise for your legs and back. Expect some back and intermittent leg aches and pains. 2. You may perform "counter-top" level activities (make a sandwich, bebeto with a project, etc.). 3. No bending or lifting of more than 10 pounds or back twisting of any nature (roll like a log when turning in bed). 4. You may ride in a car for 20-30 minutes at a time. No driving until after your first visit with your doctor. 5. Frequent changes of position and restricting sitting to 30 minutes at a time will help limit the amount of back spasms and stiffness you may experience. 6. You may discontinue the use of ambulatory aids (cane, crutches, etc.) once your strength and confidence allow. 7. You may fire fighting equipment specialist the shower and let water strike your incision when you arrive home at least once daily. Do not take a tub bath, sit in a hot tub or go into a swimming pool until after your first recheck in the office. 8. You may resume previous diet. SPECIAL CARE INSTRUCTIONS: VERY IMPORTANT TO READ AND REVIEW A. Your surgical incision has been closed with a cosmetic suture under the skin that will dissolve in about 6 weeks. In 14 days, you can use a pair of clean scissors and cut the suture that is left outside of the skin at the ends of your incision. 1. The small skin tapes can be removed 7 days after surgery if they have not fallen off by that point. 2. You may keep the wound open to air as much as possible to promote healing after post-op day number 5 unless told otherwise by your doctor. 3. If you think the wound looks like it is becoming infected (redness or worsening drainage) and/or you are experiencing fever, chill or worsening back pain and muscle spasms, contact the office so that we may evaluate you as soon as possible. B. Complications are uncommon, but please contact us if you have any signs or symptoms of: 1. wound infection (fever higher than 102.5 degrees F, redness, separation of wound, drainage, or increasing pain from the incision) 2. blood clots in legs (pain, swelling, redness and warmth in legs) 3. urinary tract infection (fever higher than 102.5 degrees F, burning upon urination or increased frequency of urination) 4. nerve problems (inability to walk on your toes or heels, numbness, loss of bowel or bladder control) 5. any other symptoms that concern you C. Please call the office at if you have any concerns or questions about your operation or recovery. D. No smoking! Smoking drastically decreases the chance of a solid fusion. E. Do not take any anti-inflammatory medications (Indocin, Advil, Motrin, Aspirin, Naprosyn, etc.) as these may inhibit the chance of a solid fusion. Tylenol is okay to take for pain. MANAGING PAIN AFTER SPINAL SURGERY 1. Narcotic medication is intended for short-term use and will be provided for surgical pain. Surgical pain usually lasts for a period of 4-6 weeks. Narcotic medication includes Percocet, Vicodin, Darvocet, Tylenol #3 or Lortab. 2. Longer-term pain is more appropriately treated with non-narcotic medication such as Tylenol ES. 3. Muscle spasm is not appropriately treated with narcotics. Muscle relaxers such as Soma, Flexeril or Skelaxin can be used along with Tylenol ES. 4. Remember that we all live with some "aches and pains". This is not unusual or uncommon after an injury or as we get older. a. Back pain is expected and may include muscle spasms for 4 to 6 weeks after surgery. The pain should gradually improve. If the pain worsens for no apparent reason, please contact the office. b. Intermittent leg pain may also be experienced and should not be concerned about unless it worsens for no apparent reason. If so, please contact the office. 5. We will provide appropriate medication within the normal guidelines of their prescribed use. We will also be very cautious and aware of potential abuse and extended duration of patients' medication needs. a. Pain medications are for your comfort and to assist with sleep and rest so that the tissue can heal. They are not provided in order to return to normal activity and should not be used through the day. To do so or worsening pain at night can result from ongoing tissue damage and development of tolerance to the prescribed medicine. 6. Please allow 2-3 days to process refills. Prescriptions will not be mailed but must be picked up at the office. FOLLOW UP VISIT: Keep your scheduled follow-up appointment. Any questions, please call the office at . Pending Studies at Discharge: No Stand-Alone Forms: My [employer], Smoking Cessation Medications and NE Order Prescriptions: New tramadol 50 mg tablet 50 mg PO Q6H PRN (Reason: pain, moderate) Qty: 30 0RF oxycodone 5 mg tablet 5 mg PO Q6H PRN (Reason: pain) Qty: 30 0RF Continued furosemide 40 mg Tablet 40 mg PO QAM metoprolol succinate 50 mg Tablet Extended Release 24 Hr 25 mg PO QAM pantoprazole 40 mg Tablet,Delayed Release (Dr/Ec) 40 mg PO QAM Xarelto 20 mg Tablet 20 mg PO QAM Rx Instructions: must administer with evening meal acetaminophen 650 mg Tablet Extended Release 1,300 mg PO DAILY PRN (Reason: Pain) Discharge Orders: Discharge Order (Routine); Ordered 10/17/24 Ordered By: Deandre Edmond Admission Data Admit Date/Time: 10/15/24 11:39 Attending Provider: Deandre Edmond Admit Provider: Deandre Edmond Primary Care Provider: Carmen Aponte Other Providers: Rocio Butts; Jose Nieves
== END 2024-10-17 13:08 | disposition home or self-care (01) | DRG 402 ==
LOC: ASU 06:37 → 3E 11:39